=== PATIENT | female | born 1970 | race African-American/Black ===

== ENCOUNTER 2017-04-24 12:45 | Emergency (ER) | payer BC ==
--- NOTE | 2017-04-24 13:12 | ER Document Report ---
ED Medical Screen (RME) - General Chief Complaint: Abdominal Pain Stated Complaint: SIDE PAIN Time Seen by Provider: 04/24/17 13:03 Notes: Day history of intermittent right lower quadrant abdomen pelvic pain. Pain is made worse getting up and down from a chair. Has been feeling hot and cold with some nauseousness. Has a past history of diverticular disease. Has some tenderness to right lower quadrant and suprapubic region on palpation. I have greeted and performed a rapid initial assessment of this patient. A comprehensive ED assessment and evaluation of the patient, analysis of test results and completion of the medical decision making process will be conducted by additional ED providers. TRAVEL OUTSIDE OF THE [place] IN LAST 30 DAYS: No - Related Data Allergies/Adverse Reactions: metronidazole [From Flagyl] Allergy (Severe, Verified 08/14/16 08:55) Hives Past Medical History - Past Medical History Cardiac Medical History: Reports: Hx Hypercholesterolemia, Hx Hypertension - on meds Denies: Hx Coronary Artery Disease, Hx Heart Attack Pulmonary Medical History: Denies: Hx Asthma, Hx Bronchitis, Hx COPD, Hx Pneumonia Neurological Medical History: Denies: Hx Cerebrovascular Accident, Hx Seizures Endocrine Medical History: Reports: Hx Diabetes Mellitus Type 2 Renal/ Medical History: Denies: Hx Peritoneal Dialysis Musculoskeltal Medical History: Denies Hx Arthritis, Reports Hx Musculoskeletal Deformity, Reports Hx Musculoskeletal Trauma Psychiatric Medical History: Denies: Hx Depression Past Surgical History: Reports: Hx Cholecystectomy, Hx Hysterectomy, Hx Orthopedic Surgery - right shoulder X2. Denies: Hx Pacemaker - Immunizations Immunizations up to date: Yes Hx Diphtheria, Pertussis, Tetanus Vaccination: Yes Physical Exam - Vital signs Vitals: Temp Pulse Resp BP Pulse Ox 98.4 F 90 15 148/88 H 97 04/24/17 12:48 04/24/17 12:48 04/24/17 12:48 04/24/17 12:48 04/24/17 12:48 Course - Vital Signs Vital signs: Temp Pulse Resp BP Pulse Ox 98.4 F 90 15 148/88 H 97 04/24/17 12:48 04/24/17 12:48 04/24/17 12:48 04/24/17 12:48 04/24/17 12:48
[2017-04-24 13:54] LABS: ABSOLUTE EOSINOPHILS # (AUTO) 0.1 10^3/uL (0.0-0.6); ABSOLUTE LYMPHOCYTES (AUTO) 3.7 10^3/uL (0.5-4.7); ABSOLUTE MONOCYTES (AUTO) 0.5 10^3/uL (0.1-1.4); ABSOLUTE NEUT (AUTO) 3.5 10^3/uL (1.7-8.2); BASOPHILS % (AUTO) 0.4 % (0-2); EOSINOPHILS % (AUTO) 1.3 % (0-6); HEMATOCRIT 37.8 % (36.0-47.0); HEMOGLOBIN 12.4 g/dL (12.0-15.5); HGB HCT DIFFERENCE -0.6; LYMPHOCYTES % (AUTO) 46.8 % (13-45); MEAN CORPUSCULAR HEMOGLOBIN 28.4 pg (27.0-33.4); MEAN CORPUSCULAR HGB CONC 32.9 g/dL (32.0-36.0); MEAN CORPUSCULAR VOLUME 86 fl (80-97); MONOCYTES % (AUTO) 6.2 % (3-13); RED BLOOD COUNT 4.38 10^6/uL (3.72-5.28); RED CELL DISTRIBUTION WIDTH 13.9 % (11.5-14.0); SEGMENTED NEUTROPHILS % (AUTO) 45.3 % (42-78); WHITE BLOOD COUNT 7.8 10^3/uL (4.0-10.5)
[2017-04-24 14:06] LABS: APPEARANCE,URINE SLIGHTLY-CLOUDY; BILIRUBIN,URINE NEGATIVE (NEGATIVE); GLUCOSE, URINE NEGATIVE (NEGATIVE); KETONES,URINE NEGATIVE (NEGATIVE); LEUKOCYTE ESTERASE,URINE NEGATIVE (NEGATIVE); NITRITE,URINE NEGATIVE (NEGATIVE); PROTEIN,URINE 30 mg/dL (NEGATIVE); UROBILINOGEN,URINE NEGATIVE mg/dL (<2.0)
[2017-04-24 14:12] LABS: ALANINE AMINOTRANSFERASE 42 U/L (9-52); ALBUMIN 4.3 g/dL (3.5-5.0); ALKALINE PHOSPHATASE 164 U/L (38-126); ANION GAP 12 (5-19); ASPARTATE AMINO TRANSFERASE 20 U/L (14-36); BILIRUBIN,DIRECT 0.3 mg/dL (0.0-0.4); BILIRUBIN,TOTAL 0.5 mg/dL (0.2-1.3); BLOOD UREA NITROGEN 13 mg/dL (7-20); CALCIUM 10.1 mg/dL (8.4-10.2); CARBON DIOXIDE 26 mmol/L (22-30); CHLORIDE 103 mmol/L (98-107); CREATININE RESULT 0.62 mg/dL (0.52-1.25); GLUCOSE 111 mg/dL (75-110); POTASSIUM 4.2 mmol/L (3.6-5.0); SODIUM 141.4 mmol/L (137-145)
--- NOTE | 2017-04-24 15:10 | RADIOLOGY REPORT (SQ) ---
EXAM DESCRIPTION: CT ABD/PELVIS WITH IV ONLY COMPLETED DATE/TIME: 04/24/2017 2:39 pm REASON FOR STUDY: RLQ and mid pelvic pain, hx of diverticular diz COMPARISON: None. TECHNIQUE: CT scan of the abdomen and pelvis performed using helical scanning technique with dynamic intravenous contrast injection. No oral contrast. Images reviewed with lung, soft tissue, and bone windows. Reconstructed coronal and sagittal MPR images reviewed. Delayed images for evaluation of the urinary system also acquired. All images stored on PACS. All CT scanners at this facility use dose modulation, iterative reconstruction, and/or weight based d osing when appropriate to reduce radiation dose to as low as reasonably achievable (ALARA). [facility]: Dose Right [facility]: CareDose [facility]: Dose Right [facility]: Teradose 4D [facility]: BrainMass CONTRAST TYPE AND DOSE: contrast/concentration: Isovue 370.00 mg/ml; Total Contrast Delivered: 94.0 ml; Total Saline Delivered: 42.9 ml RENAL FUNCTION: Creatinine 0.62 RADIATION DOSE: Up-to-date CT equipment and radiation dose reduction techniques were employed. CTDIv ol: 9.6 - 13.5 mGy. DLP: 1254 mGy-cm.. LIMITATIONS: None. FINDINGS: LOWER CHEST: No significant findings. No nodules or infiltrates. LIVER: Normal size. No masses. No dilated ducts. There is diffuse fatty infiltration of the liver. SPLEEN: Normal size. No focal lesions. PANCREAS: No masses. No significant calcifications. No adjacent inflammation or peripancreatic fluid collections. Pancreatic duct not dilated. GALLBLADDER: Status post cholecystectomy. ADRENAL GLANDS: No significant masses or asymmetry. RIGHT KIDNEY AND URETER: No solid masses. No significant calcifications. No hydronephrosis or hyd roureter. LEFT KIDNEY AND URETER: No solid masses. No significant calcifications. No hydronephrosis or hydr oureter. AORTA AND VESSELS: No aneurysm. No dissection. Renal arteries, SMA, celiac without stenosis. RETROPERITONEUM: No retroperitoneal adenopathy, hemorrhage or masses. BOWEL AND PERITONEAL CAVITY: No masses or inflammatory changes. No free fluid or peritoneal masses. APPENDIX: Normal. PELVIS: No mass or free fluid. Normal bladder. ABDOMINAL WALL: No masses. No hernias. BONES: No significant or acute findings. OTHER: No other significant finding. IMPRESSION: NO SIGNIFICANT OR ACUTE FINDING IN THE ABDOMEN OR PELVIS ON CT SCAN WITH IV CONTRAST. TECHNICAL DOCUMENTATION: JOB ID: [id number] Quality ID # [id number]: Final reports with documentation of one or more dose reduction techniques (e.g., Au tomated exposure control, adjustment of the mA and/or kV according to patient size, use of iterative reconstruction technique) 2010 [employer]- All Rights Reserved
[2017-04-24] MEDS ORDERED: MORPHINE SULFATE 10 MG/ML INJ IV ONE (16:05)
[2017-04-24] MEDS ORDERED: ONDANSETRON HCL INJ/PF 4 MG/2 ML SDV IV ONE (16:05)
--- NOTE | 2017-04-24 16:26 | ER Document Report ---
ED GI/ - General Chief Complaint: Abdominal Pain Stated Complaint: SIDE PAIN Time Seen by Provider: 04/24/17 13:03 Mode of Arrival: Ambulatory Information source: Patient TRAVEL OUTSIDE OF THE [place] IN LAST 30 DAYS: No - HPI Patient complains to provider of: Abdominal pain Onset: Other - 4 DAYS Timing/Duration: Gradual Quality of pain: Cramping, Sharp Severity at maximum: Moderate Severity in ED: Mild Context: denies: Bad food, Lifting, Out of the country travel, , Recent trauma Location: RLQ - JUST ABOVE INGUINAL LIGAMENT Vaginal bleeding (Compared to normal period): None Menstrual period history: S/P menopausal - Related Data Allergies/Adverse Reactions: metronidazole [From Flagyl] Allergy (Severe, Verified 08/14/16 08:55) Hives Past Medical History - General Information source: Patient - Social History Smoking Status: Unknown if Ever Smoked Cigarette use (# per day): No Chew tobacco use (# tins/day): No Frequency of alcohol use: None Drug Abuse: None Lives with: Family Family History: Reviewed & Not Pertinent, DM Patient has suicidal ideation: No Patient has homicidal ideation: No - Past Medical History Cardiac Medical History: Reports: Hx Hypercholesterolemia, Hx Hypertension - on meds Denies: Hx Coronary Artery Disease, Hx Heart Attack Pulmonary Medical History: Denies: Hx Asthma, Hx Bronchitis, Hx COPD, Hx Pneumonia Neurological Medical History: Denies: Hx Cerebrovascular Accident, Hx Seizures Endocrine Medical History: Reports: Hx Diabetes Mellitus Type 2 Renal/ Medical History: Denies: Hx Peritoneal Dialysis Malignancy Medical History: Reports: None GI Medical History: Reports: None Musculoskeltal Medical History: Denies Hx Arthritis, Reports Hx Musculoskeletal Deformity, Reports Hx Musculoskeletal Trauma Psychiatric Medical History: Denies: Hx Depression Past Surgical History: Reports: Hx Cholecystectomy, Hx Hysterectomy, Hx Orthopedic Surgery - right shoulder X2. Denies: Hx Pacemaker - Immunizations Immunizations up to date: Yes Hx Diphtheria, Pertussis, Tetanus Vaccination: Yes Review of Systems - Review of Systems Constitutional: No symptoms reported. denies: Chills, Fever EENT: No symptoms reported Cardiovascular: No symptoms reported Respiratory: No symptoms reported Gastrointestinal: See HPI, Abdominal pain, Nausea, Poor appetite. denies: Diarrhea, Vomiting, Constipation, Black stools, Rectal bleeding Genitourinary: No symptoms reported Female Genitourinary: Post menopausal Musculoskeletal: No symptoms reported Skin: No symptoms reported Neurological/Psychological: No symptoms reported Physical Exam - Vital signs Vitals: Temp Pulse Resp BP Pulse Ox 98.4 F 90 15 148/88 H 97 04/24/17 12:48 04/24/17 12:48 04/24/17 12:48 04/24/17 12:48 04/24/17 12:48 Interpretation: Hypertensive. No: Tachycardic, Tachypneic, Febrile - General General appearance: Appears well, Alert In distress: None - HEENT Head: Normocephalic Eyes: Normal Conjunctiva: Normal Ears: Normal Nasal: Normal Mouth/Lips: Normal Mucous membranes: Normal Pharynx: Normal Neck: Normal - Respiratory Respiratory status: No respiratory distress Breath sounds: Normal - Cardiovascular Rhythm: Regular Heart sounds: Normal auscultation Murmur: No - Abdominal Inspection: Normal Bowel sounds: Normal Tenderness: Tender - MILD, RLQ - Back Back: Normal. No: Tender, CVA tenderness - Extremities General upper extremity: Normal inspection General lower extremity: Normal inspection - Neurological Neuro grossly intact: Yes Cognition: Normal Orientation: AAOx4 - Psychological Associated symptoms: Normal affect, Normal mood - Skin Skin Temperature: Warm Skin Moisture: Dry Skin Color: Normal Skin Turgor: Elastic Course - Vital Signs Vital signs: Temp Pulse Resp BP Pulse Ox 97.8 F 72 16 113/65 95 04/24/17 18:47 04/24/17 18:47 04/24/17 18:47 04/24/17 18:47 04/24/17 18:47 - Laboratory Result Diagrams: 04/24/17 13:30 04/24/17 13:30 Laboratory results interpreted by me: 04/24/17 04/24/17 04/24/17 13:30 13:30 13:30 Lymphocytes % 46.8 H Glucose 111 H Alkaline Phosphatase 164 H Urine Protein 30 H - Consults DR. GARY Time consulted: 20:50 Consulted provider: follow-up in office Discharge - Discharge Clinical Impression: Abdominal pain Qualifiers: Abdominal location: right lower quadrant Qualified Code(s): R10.31 - Right lower quadrant pain Condition: Stable Disposition: HOME, SELF-CARE Instructions: Abdominal Pain ([facility]), Intravenous (IV) Fluids ([facility]), Oral Narcotic Medication ([facility]) Additional Instructions: REST, DRINK PLENTY OF FLUIDS. CONTINUE YOUR USUAL MEDS PRESCRIBED BY DR. GARY. FOLLOW UP WITH DR. GARY TOMORROW, CALL OFFICE AFTER 8 A.M. FOR TIME. RETURN TO E.R. IF ANY WORSENING, ANY TIME. Referrals: GARY GARY MD [Primary Care Provider] - Follow up tomorrow
--- NOTE | 2017-04-24 18:41 | RADIOLOGY REPORT (SQ) ---
EXAM DESCRIPTION: U/S NON OB PEL TV W/DOPPLER COMPLETED DATE/TIME: 04/24/2017 6:25 pm REASON FOR STUDY: RLQ ABD PELVIC PAIN, NORMAL CT COMPARISON: Abdominopelvic CT scan dated 04/24/2017 TECHNIQUE: Dynamic and static grayscale images acquired of the pelvis via transvaginal approach and recorded on PACS. Additional selected color Doppler and spectral images recorded. LIMITATIONS: Study is limited due to overlying bowel gas. FINDINGS: UTERUS: Status post hysterectomy. RIGHT OVARY: Right ovary was not visualized. LEFT OVARY: Left ovary was not visualized. FREE FLUID: None noted. OTHER: No other significant finding. IMPRESSION: Limited study as noted above. No significant pelvic abnormalities were identified. TECHNICAL DOCUMENTATION: JOB ID: [id number] [employer].- All Rights Reserved
[2017-04-24] MEDS ORDERED: HYDROCODONE/ACETAMINOPHEN 5-325 MG 6 TAB/DSPK PO PRN (19:25)
[2017-04-24] MEDS ORDERED: NORMAL SALINE 1000 ML 1,000 ML IV ONE (19:25)
[2017-04-24 22:26] VITALS: BP 113/68
== END 2017-04-24 22:24 | disposition home or self-care (01) ==
LOC: ER 12:45
DX: R10.31 Right lower quadrant pain (principal); R11.0 Nausea; E78.00 Pure hypercholesterolemia, unspecified; I10 Essential (primary) hypertension; E11.9 Type 2 diabetes mellitus without complications; Z90.49 Acquired absence of other specified parts of digestive tract; Z90.710 Acquired absence of both cervix and uterus
CPT/HCPCS: 99284; 96361; 96374; 96375; 36415; 82962; 83690; 85025; 80053; 81001; 76830; 93976; 74177; J2270; J2405; J7030

== ENCOUNTER 2017-07-29 20:39 | Emergency (ER) | payer BC ==
[2017-07-29 21:45] LABS: ABSOLUTE BASOPHILS # (AUTO) 0.1 10^3/uL (0.0-0.2); ABSOLUTE EOSINOPHILS # (AUTO) 0.1 10^3/uL (0.0-0.6); ABSOLUTE LYMPHOCYTES (AUTO) 4.3 10^3/uL (0.5-4.7); ABSOLUTE MONOCYTES (AUTO) 0.4 10^3/uL (0.1-1.4); ABSOLUTE NEUT (AUTO) 3.7 10^3/uL (1.7-8.2); BASOPHILS % (AUTO) 0.9 % (0-2); EOSINOPHILS % (AUTO) 1.5 % (0-6); HEMATOCRIT 36.2 % (36.0-47.0); HEMOGLOBIN 12.7 g/dL (12.0-15.5); HGB HCT DIFFERENCE 1.9; LYMPHOCYTES % (AUTO) 49.6 % (13-45); MEAN CORPUSCULAR HEMOGLOBIN 30.5 pg (27.0-33.4); MEAN CORPUSCULAR HGB CONC 35.1 g/dL (32.0-36.0); MEAN CORPUSCULAR VOLUME 87 fl (80-97); MONOCYTES % (AUTO) 4.8 % (3-13); RED BLOOD COUNT 4.16 10^6/uL (3.72-5.28); RED CELL DISTRIBUTION WIDTH 13.5 % (11.5-14.0); SEGMENTED NEUTROPHILS % (AUTO) 43.2 % (42-78); WHITE BLOOD COUNT 8.6 10^3/uL (4.0-10.5)
[2017-07-29 21:47] LABS: APPEARANCE,URINE SLIGHTLY-CLOUDY; BILIRUBIN,URINE NEGATIVE (NEGATIVE); GLUCOSE, URINE >=500 mg/dL (NEGATIVE); KETONES,URINE NEGATIVE (NEGATIVE); LEUKOCYTE ESTERASE,URINE TRACE (NEGATIVE); NITRITE,URINE NEGATIVE (NEGATIVE); PROTEIN,URINE NEGATIVE (NEGATIVE); URINE SPECIFIC GRAVITY 1.028
--- NOTE | 2017-07-29 22:03 | ER Document Report ---
ED Medical Screen (RME) - General Chief Complaint: Vaginal Bleeding Stated Complaint: BLEEDING Time Seen by Provider: 07/29/17 22:01 Mode of Arrival: Ambulatory Information source: Patient Notes: 47-year-old female presents to ED for complaint of vaginal bleeding today. She states she has had a partial hysterectomy. She states she had a little bit of blood in her panty liner the first time and the second time she had a small amount on the tissue after she urinated. Past medical history is shoulder surgery 2 on the right gallbladder removal endoscopy colonoscopy. She states she smokes 5-6 cigarettes a day alcohol a glass of wine weekly no drugs. 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 I have greeted and performed a rapid initial assessment of this patient. A comprehensive ED assessment and evaluation of the patient, analysis of test results and completion of medical decision making process will be conducted by an additional ED providers. TRAVEL OUTSIDE OF THE [place] IN LAST 30 DAYS: No - Related Data Allergies/Adverse Reactions: metronidazole [From Flagyl] Allergy (Severe, Verified 07/29/17 21:12) Hives Past Medical History - Past Medical History Cardiac Medical History: Reports: Hx Hypercholesterolemia, Hx Hypertension - on meds Denies: Hx Coronary Artery Disease, Hx Heart Attack Pulmonary Medical History: Denies: Hx Asthma, Hx Bronchitis, Hx COPD, Hx Pneumonia Neurological Medical History: Denies: Hx Cerebrovascular Accident, Hx Seizures Endocrine Medical History: Reports: Hx Diabetes Mellitus Type 2 Renal/ Medical History: Denies: Hx Peritoneal Dialysis Musculoskeltal Medical History: Denies Hx Arthritis, Reports Hx Musculoskeletal Deformity, Reports Hx Musculoskeletal Trauma Psychiatric Medical History: Denies: Hx Depression Past Surgical History: Reports: Hx Cholecystectomy, Hx Hysterectomy, Hx Orthopedic Surgery - right shoulder X2. Denies: Hx Pacemaker - Immunizations Immunizations up to date: Yes Hx Diphtheria, Pertussis, Tetanus Vaccination: Yes Physical Exam - Vital signs Vitals: Temp Pulse Resp BP Pulse Ox 97.7 F 96 14 130/79 H 97 07/29/17 21:14 07/29/17 21:14 07/29/17 21:14 07/29/17 21:14 07/29/17 21:14 Course - Vital Signs Vital signs: Temp Pulse Resp BP Pulse Ox 97.7 F 96 14 130/79 H 97 07/29/17 21:14 07/29/17 21:14 07/29/17 21:14 07/29/17 21:14 07/29/17 21:14 - Laboratory Result Diagrams: 07/29/17 21:35 Laboratory results interpreted by me: 07/29/17 07/29/17 21:24 21:35 Lymphocytes % 49.6 H Urine Glucose (UA) >=500 H Urine Urobilinogen 4.0 H Ur Leukocyte Esterase TRACE H
--- NOTE | 2017-07-30 06:24 | ER Document Report ---
ED General - General Chief Complaint: Vaginal Bleeding Stated Complaint: BLEEDING Time Seen by Provider: 07/29/17 22:01 Mode of Arrival: Ambulatory Information source: Patient Notes: 47 yr old female presents with hx of partial hysterectomy with vaginal spotting and pelvic pressure. Pt denies nay fevers or chills. [facility] performed [facility] TRAVEL OUTSIDE OF THE [place] IN LAST 30 DAYS: No - HPI Onset: Yesterday Onset/Duration: Sudden Quality of pain: Pressure Severity: Mild Pain Level: 1 Associated symptoms: Other Exacerbated by: Denies Relieved by: Denies Similar symptoms previously: No Recently seen / treated by doctor: No - Related Data Allergies/Adverse Reactions: metronidazole [From Flagyl] Allergy (Severe, Verified 07/29/17 21:12) Hives Past Medical History - General Information source: Patient - Social History Smoking Status: Never Smoker Cigarette use (# per day): No Chew tobacco use (# tins/day): No Smoking Education Provided: No Family History: Reviewed & Not Pertinent, DM Patient has suicidal ideation: No Patient has homicidal ideation: No - Past Medical History Cardiac Medical History: Reports: Hx Hypercholesterolemia, Hx Hypertension - on meds Denies: Hx Coronary Artery Disease, Hx Heart Attack Pulmonary Medical History: Denies: Hx Asthma, Hx Bronchitis, Hx COPD, Hx Pneumonia Neurological Medical History: Denies: Hx Cerebrovascular Accident, Hx Seizures Endocrine Medical History: Reports: Hx Diabetes Mellitus Type 2 Renal/ Medical History: Denies: Hx Peritoneal Dialysis Musculoskeltal Medical History: Denies Hx Arthritis, Reports Hx Musculoskeletal Deformity, Reports Hx Musculoskeletal Trauma Psychiatric Medical History: Denies: Hx Depression Past Surgical History: Reports: Hx Cholecystectomy, Hx Hysterectomy, Hx Orthopedic Surgery - right shoulder X2. Denies: Hx Pacemaker - Immunizations Immunizations up to date: Yes Hx Diphtheria, Pertussis, Tetanus Vaccination: Yes Review of Systems - Review of Systems Notes: REVIEW OF SYSTEMS: CONSTITUTIONAL : Denies fever, chills, or sweats. Denies recent illness. EENT: Denies eye, ear, throat, or mouth pain or symptoms. Denies nasal or sinus congestion or discharge. Denies throat, tongue, or mouth swelling or difficulty swallowing. CARDIOVASCULAR: Denies chest pain. Denies palpitations or racing or irregular heart beat. Denies ankle edema. RESPIRATORY: Denies cough, cold, or chest congestion. Denies shortness of breath, difficulty breathing, or wheezing. GASTROINTESTINAL: Denies abdominal pain or distention. Denies nausea, vomiting , or diarrhea. Denies blood in vomitus, stools, or per rectum. Denies black, tarry stools. Denies constipation. GENITOURINARY: Denies difficulty urinating, painful urination, burning, frequency, blood in urine, or discharge. FEMALE GENITOURINARY: Admits to vaginal pain pressure MUSCULOSKELETAL: Denies back or neck pain or stiffness. Denies joint pain or swelling. SKIN: Denies rash, lesions or sores. HEMATOLOGIC : Denies easy bruising or bleeding. LYMPHATIC: Denies swollen, enlarged glands. NEUROLOGICAL: Denies confusion or altered mental status. Denies passing out or loss of consciousness. Denies dizziness or lightheadedness. Denies headache. Denies weakness or paralysis or loss of use of either side. Denies problems with gait or speech. Denies sensory loss, numbness, or tingling. Denies seizures. PSYCHIATRIC: Denies anxiety or stress. Denies depression, suicidal ideation, or homicidal ideation. ALL OTHER SYSTEMS REVIEWED AND NEGATIVE. PHYSICAL EXAMINATION: GENERAL: Well-appearing, well-nourished and in no acute distress. HEAD: Atraumatic, normocephalic. EYES: Pupils equal round and reactive to light, extraocular movements intact, conjunctiva are normal. ENT: Nares patent, oropharynx clear without exudates. Moist mucous membranes. NECK: Normal range of motion, supple without lymphadenopathy LUNGS: Breath sounds clear to auscultation bilaterally and equal. No wheezes rales or rhonchi. HEART: Regular rate and rhythm without murmurs ABDOMEN: Soft, nontender, nondistended abdomen. No guarding, no rebound. No masses appreciated. Female : deferred Musculoskeletal: Normal range of motion, no pitting or edema. No cyanosis. NEUROLOGICAL: Cranial nerves grossly intact. Normal speech, normal gait. Normal sensory, motor exams PSYCH: Normal mood, normal affect. SKIN: Warm, Dry, normal turgor, no rashes or lesions noted. Dictation was performed using [employer] recognition software Physical Exam - Vital signs Vitals: Temp Pulse Resp BP Pulse Ox 97.7 F 96 14 130/79 H 97 07/29/17 21:14 07/29/17 21:14 07/29/17 21:14 07/29/17 21:14 07/29/17 21:14 Course - Re-evaluation Re-evalutation: 07/30/17 06:24 pt seen, u/s ordered 07/30/17 08:50 u/s noted no mass, labs were normal, I did speak with the patient regarding the need for OBGYN evaluation. she agrees , will dc home with pain control After performing a Medical Screening Examination, I estimate there is LOW risk for ACUTE APPENDICITIS, BOWEL OBSTRUCTION, ACUTE CHOLECYSTITIS, PERFORATED DIVERTICULITIS, INCARCERATED HERNIA, PANCREATITIS, PELVIC INFLAMMATORY DISEASE, PERFORATED ULCER, ECTOPIC , or TUBO-OVARIAN ABSCESS, thus I consider the discharge disposition reasonable. Also, there is no evidence or peritonitis , sepsis, or toxicity. I have reevaluated this patient multiple times and no significant life threatening changes are noted. The patient and I have discussed the diagnosis and risks, and we agree with discharging home with close follow-up with the understanding that symptoms and presentations can change. We also discussed returning to the Emergency Department immediately if new or worsening symptoms occur. We have discussed the symptoms which are most concerning (e.g., bloody stool, fever, changing or worsening pain, vomiting) that necessitate immediate return. - Vital Signs Vital signs: Temp Pulse Resp BP Pulse Ox 97.7 F 76 18 96/80 L 96 07/29/17 21:14 07/30/17 06:05 07/30/17 06:05 07/30/17 06:05 07/30/17 06:05 - Laboratory Result Diagrams: 07/29/17 21:35 Laboratory results interpreted by me: 07/29/17 07/29/17 21:24 21:35 Lymphocytes % 49.6 H Urine Glucose (UA) >=500 H Urine Urobilinogen 4.0 H Ur Leukocyte Esterase TRACE H - Diagnostic Test Radiology reviewed: Image reviewed, Reports reviewed - no acute abnormality Discharge - Discharge Clinical Impression: Pelvic pain, Vagina bleeding Condition: Stable Disposition: HOME, SELF-CARE Instructions: Vaginal Bleeding ([facility]) Additional Instructions: Please return immediately if there are any other concerns Prescriptions: Oxycodone HCl/Acetaminophen [Percocet 5-325 mg Tablet] 1 - 2 tab PO Q4H PRN #15 tablet PRN Reason: Referrals: GARY GARY MD [Primary Care Provider] - Follow up as needed [facility] [Provider Group] - Follow up tomorrow
--- NOTE | 2017-07-30 08:00 | RADIOLOGY REPORT (SQ) ---
EXAM DESCRIPTION: U/S NON OB PEL TV W/DOPPLER COMPLETED DATE/TIME: 07/30/2017 7:45 am REASON FOR STUDY: vag bleed, hx parital hysterectomy COMPARISON: 04/24/2017. TECHNIQUE: Dynamic and static grayscale images acquired of the pelvis via transvaginal approach and recorded on PACS. Additional selected color Doppler and spectral images recorded. LIMITATIONS: None. FINDINGS: UTERUS: Absent. ENDOMETRIAL STRIPE: Not applicable. CERVIX: Not applicable. RIGHT OVARY: No abnormal masses. RIGHT OVARY DOPPLER: Normal arterial vascular flow without evidence for torsion. LEFT OVARY: No abnormal masses. LEFT OVARY DOPPLER: Normal arterial vascular flow without evidence for torsion. FREE FLUID: None noted. OTHER: Heterogeneity with nonspecific echogenic foci of the vaginal cuff. MEASUREMENTS: UTERUS: Absent. ENDOMETRIAL STRIPE: Not applicable. RIGHT OVARY: 3.1 cm. LEFT OVARY: 2.5 cm. IMPRESSION: No acute findings. Uterus is surgically absent. Normal ovaries. TECHNICAL DOCUMENTATION: JOB ID: [id number] [employer]- All Rights Reserved
[2017-07-30 09:00] VITALS: BP 120/79
== END 2017-07-30 09:11 | disposition home or self-care (01) ==
LOC: ER 20:39
DX: N93.9 Abnormal uterine and vaginal bleeding, unspecified (principal); R10.2 Pelvic and perineal pain; I10 Essential (primary) hypertension; Z90.711 Acquired absence of uterus with remaining cervical stump; Z90.49 Acquired absence of other specified parts of digestive tract; Z88.1 Allergy status to other antibiotic agents; E11.9 Type 2 diabetes mellitus without complications
CPT/HCPCS: 36415; 76830; 81001; 85025; 93976; 99284

== ENCOUNTER 2017-08-31 04:29 | Emergency (ER) | payer BC ==
[2017-08-31] MEDS ORDERED: LIDOCAINE 2% INJ-PF (20 MG/ML) 10 ML AMPUL NEB ONE (04:53)
--- NOTE | 2017-08-31 04:56 | ER Document Report ---
Doctor's Note Notes: 08/31/17 04:53 I performed a quick triage evaluation the patient. Patient is a 39-year-old female who presents with gradual worsening of a sensation that something is stuck in her throat. She says that she has a history of a small abrasion on her esophagus while back which is caused by popcorn kernel. Few weeks ago started feeling as if she is having that sensation again so she went back to Dr. Montelongo. He said they would arrange for endoscopy. She is scheduled for endoscopy on Saturday. She said her symptoms have continued to worsen and tonight she feels as if she opens her mouth that she will vomit and she also feels as if something is affecting her breathing. She denies of any previous injuries or trauma to her airway. The previous surgery she had in the past was to the esophagus. No spinning up of blood. No coughing up of blood. No actual vomiting yet. No fevers. No other complaints at this time. On exam patient has no stridor. She will not fully open her mouth as she says it makes her feel like she has to vomit if she does so. Her lung hong are clear. She is not in any distress. She seems very anxious. I will order lab work. I will order some x-rays. I will give her lidocaine nebulizer to see if this will help numb her throat so she will be willing to open her mouth so that the oncoming physician will be able to look at her throat. We will give her a small dose Ativan as she seems very anxious. 08/31/17 04:55
[2017-08-31] MEDS ORDERED: LORAZEPAM INJ 2 MG/1 ML VIAL IV ONE (05:31)
[2017-08-31 05:43] LABS: PROTHROMBIN TIME 11.8 SEC (11.4-15.4)
[2017-08-31 05:44] LABS: PARTIAL THROMBOPLASTIN TIME 31.6 SEC (23.5-35.8)
[2017-08-31 05:56] LABS: ANION GAP 16 (5-19); BLOOD UREA NITROGEN 14 mg/dL (7-20); CALCIUM 10.4 mg/dL (8.4-10.2); CARBON DIOXIDE 21 mmol/L (22-30); CHLORIDE 105 mmol/L (98-107); CREATININE RESULT 0.66 mg/dL (0.52-1.25); GLUCOSE 262 mg/dL (75-110); POTASSIUM 4.5 mmol/L (3.6-5.0); SODIUM 141.9 mmol/L (137-145)
[2017-08-31] MEDS ORDERED: ONDANSETRON HCL INJ/PF 4 MG/2 ML SDV ONE (05:59)
--- NOTE | 2017-08-31 06:03 | RADIOLOGY REPORT (SQ) ---
EXAM DESCRIPTION: SOFT TISSUE NECK COMPLETED DATE/TIME: 08/31/2017 5:53 am REASON FOR STUDY: dyspnea COMPARISON: None. NUMBER OF VIEWS: Two views. TECHNIQUE: AP and lateral radiographic image of the soft tissues of the neck. LIMITATIONS: None. FINDINGS: EPIGLOTTIS: Normal. Contour normal. Aryepiglottic folds normal. PREVERTEBRAL SOFT TISSUES: Normal. No soft tissue swelling. SUBGLOTTIC AREA: Normal. No abnormal narrowing. RETROPHARYNGEAL SPACE: Normal. No soft tissue masses. BONES: No significant findings. Moderate anterior marginal and partially bridging osteophytes throug hout the cervical spine. LUNG APICES: Normal. OTHER: No radiopaque foreign body. No other significant finding. IMPRESSION: NEGATIVE STUDY OF THE SOFT TISSUES OF THE NECK. TECHNICAL DOCUMENTATION: JOB ID: [id number] [employer]- All Rights Reserved
--- NOTE | 2017-08-31 06:03 | RADIOLOGY REPORT (SQ) ---
EXAM DESCRIPTION: CHEST SINGLE VIEW COMPLETED DATE/TIME: 08/31/2017 5:53 am REASON FOR STUDY: dyspnea COMPARISON: 01/26/2016. EXAM PARAMETERS: NUMBER OF VIEWS: One view. TECHNIQUE: Single frontal radiographic view of the chest acquired. RADIATION DOSE: NA LIMITATIONS: None. FINDINGS: LUNGS AND PLEURA: No opacities, masses or pneumothorax. No pleural effusion. Moderate briana g volume. Stable. MEDIASTINUM AND HILAR STRUCTURES: No masses. Contour normal. HEART AND VASCULAR STRUCTURES: Heart normal in size. Normal vasculature. BONES: No acute findings. HARDWARE: Right upper abdominal clips. OTHER: No other significant finding. IMPRESSION: NO ACUTE RADIOGRAPHIC FINDING IN THE CHEST. TECHNICAL DOCUMENTATION: JOB ID: [id number] [employer]- All Rights Reserved
[2017-08-31] MEDS ORDERED: ONDANSETRON HCL INJ/PF 4 MG/2 ML SDV IV ONE (06:08)
[2017-08-31 06:18] LABS: ABSOLUTE BASOPHILS # (AUTO) 0.1 10^3/uL (0.0-0.2); ABSOLUTE EOSINOPHILS # (AUTO) 0.1 10^3/uL (0.0-0.6); ABSOLUTE LYMPHOCYTES (AUTO) 5.1 10^3/uL (0.5-4.7); ABSOLUTE MONOCYTES (AUTO) 0.7 10^3/uL (0.1-1.4); ABSOLUTE NEUT (AUTO) 4.2 10^3/uL (1.7-8.2); BASOPHILS % (AUTO) 0.7 % (0-2); EOSINOPHILS % (AUTO) 0.9 % (0-6); HEMATOCRIT 36.7 % (36.0-47.0); HEMOGLOBIN 12.8 g/dL (12.0-15.5); HGB HCT DIFFERENCE 1.7; LYMPHOCYTES % (AUTO) 50.3 % (13-45); MEAN CORPUSCULAR HEMOGLOBIN 29.7 pg (27.0-33.4); MEAN CORPUSCULAR HGB CONC 34.8 g/dL (32.0-36.0); MEAN CORPUSCULAR VOLUME 85 fl (80-97); MONOCYTES % (AUTO) 7.2 % (3-13); RED CELL DISTRIBUTION WIDTH 13.5 % (11.5-14.0); SEGMENTED NEUTROPHILS % (AUTO) 40.9 % (42-78); WHITE BLOOD COUNT 10.2 10^3/uL (4.0-10.5)
--- NOTE | 2017-08-31 06:46 | ER Document Report ---
ED ENT - General Mode of Arrival: Ambulatory Information source: Patient TRAVEL OUTSIDE OF THE [place] IN LAST 30 DAYS: No <ALLYSON MIRAMONTES - Last Filed: 08/31/17 06:56> <YVETTE KINCAID - Last Filed: 08/31/17 07:15> - General Chief Complaint: Difficulty Swallowing Stated Complaint: CHEST PAIN Time Seen by Provider: 08/31/17 04:53 Notes: Patient is a 47 year old female that presents to the emergency department today with complaints of a foreign body sensation in her throat for the last year exacerbated over the last three weeks. Patient states two years ago she developed an abrasion on her esophagus from a popcorn kernel. Patient has an endoscopy scheduled in two days. Patient was given nebulized lidocaine which she states made her sensation worse. Patient states she feels like she has difficulty breathing and swallowing despite saturating 97-98 on room air. (ALLYSON MIRAMONTES) - Related Data Allergies/Adverse Reactions: metronidazole [From Flagyl] Allergy (Severe, Verified 07/29/17 21:12) Hives Past Medical History - General Information source: Patient - Social History Smoking Status: Never Smoker Cigarette use (# per day): No Frequency of alcohol use: None Drug Abuse: None Lives with: Family Family History: Reviewed & Not Pertinent, DM Patient has suicidal ideation: No Patient has homicidal ideation: No - Past Medical History Cardiac Medical History: Reports: Hx Hypercholesterolemia, Hx Hypertension - on meds Neurological Medical History: Denies: Hx Cerebrovascular Accident, Hx Seizures Endocrine Medical History: Reports: Hx Diabetes Mellitus Type 2 Renal/ Medical History: Denies: Hx Peritoneal Dialysis Musculoskeltal Medical History: Denies Hx Arthritis, Reports Hx Musculoskeletal Deformity, Reports Hx Musculoskeletal Trauma Psychiatric Medical History: Denies: Hx Depression Past Surgical History: Reports: Hx Cholecystectomy, Hx Hysterectomy, Hx Orthopedic Surgery - right shoulder X2. Denies: Hx Pacemaker - Immunizations Immunizations up to date: Yes Hx Diphtheria, Pertussis, Tetanus Vaccination: Yes <ALLYSON MIRAMONTES - Last Filed: 08/31/17 06:56> Review of Systems - Review of Systems Constitutional: No symptoms reported EENT: See HPI, Other - foreign body sensation Cardiovascular: No symptoms reported Respiratory: No symptoms reported Gastrointestinal: No symptoms reported Genitourinary: No symptoms reported Female Genitourinary: No symptoms reported Musculoskeletal: No symptoms reported Skin: No symptoms reported Hematologic/Lymphatic: No symptoms reported Neurological/Psychological: No symptoms reported -: Yes All other systems reviewed and negative <ALLYSON MIRAMONTES - Last Filed: 08/31/17 06:56> Physical Exam <FEALLYSON - Last Filed: 08/31/17 06:56> <YVETTE KINCAID - Last Filed: 08/31/17 07:15> - Vital signs Vitals: Temp Pulse Resp BP Pulse Ox 97.9 F 87 24 H 149/88 H 100 08/31/17 04:31 08/31/17 04:31 08/31/17 04:31 08/31/17 04:31 08/31/17 04:31 - Notes Notes: Physical Exam: General: Alert, appears well. Multiple family members in room. HEENT: Normocephalic. Atraumatic. PERRLA. Extraocular movements intact. Patient refuses to open mouth for exam. Neck: Supple. Patient pushes hand away when attempting to listen to airflow. Respiratory: No respiratory distress. Abdominal: Normal Inspection. No distension. Extremities: Moves all four extremities. Neurological: Normal cognition. AAOx4. Normal speech. Psychological: Uncooperative Skin: Warm. Dry. Normal color. (ALLYSON MIRAMONTES) Course - Laboratory Result Diagrams: 08/31/17 06:05 08/31/17 04:43 <FEALLYSON - Last Filed: 08/31/17 06:56> - Laboratory Result Diagrams: 08/31/17 06:05 08/31/17 04:43 - Diagnostic Test Radiology reviewed: Image reviewed, Reports reviewed - Chest x-ray and soft tissue neck films are unremarkable. - EKG Interpretation by Ia EKG shows normal: Sinus rhythm, [place], Intervals, QRS Complexes, ST-T Waves Rate: Normal - 82 Rhythm: NSR <YVETTE KINCAID - Last Filed: 08/31/17 07:15> - Re-evaluation Re-evalutation: 08/31/17 07:12 The patient was given lidocaine to inhale and Ativan by Dr. Cuadra initially. This was in hopes of facilitating an oral pharyngeal exam. Patient reports that the inhaled lidocaine made her symptoms worse. She was unwilling to open her mouth to allow an oral pharyngeal exam. She was not tachypneic, she was not dyspneic, she was not tachycardic. Her pulse ox was in the 96-98% room air range. Her voice did not sound altered. I asked the patient if there was anything that she could think of that she felt may help the swallowing difficulty, breathing difficulty or esophageal foreign body sensation--she stated she did not know of anything and had no request. I advised her that if she does have a persistent lesion from the popcorn husk laceration from 2 years ago, it would most likely best be seen on direct visualization by endoscopy as scheduled. She was encouraged to stay on clear liquids or pure soft diet. She was encouraged to take her blood pressure medication when she returns home. She stated she did not need a note for work as she was off for the next few days. (YVETTE KINCAID) - Vital Signs Vital signs: Temp Pulse Resp BP Pulse Ox 97.9 F 87 24 H 149/88 H 100 08/31/17 04:31 08/31/17 04:31 08/31/17 04:31 08/31/17 04:31 08/31/17 04:31 - Laboratory Laboratory results interpreted by me: 08/31/17 08/31/17 04:43 06:05 Seg Neutrophils % 40.9 L Lymphocytes % 50.3 H Absolute Lymphocytes 5.1 H Carbon Dioxide 21 L Glucose 262 H Calcium 10.4 H Discharge <ALLYSON MIRAMONTES - Last Filed: 08/31/17 06:56> <YVETTE KINCAID - Last Filed: 08/31/17 07:15> - Discharge Clinical Impression: Sensation of foreign body in esophagus Condition: Stable Disposition: HOME, SELF-CARE Additional Instructions: You appear to have a worsening of your chronic esophageal foreign body sensation. The etiology of this would probably best be discovered and treated by the endoscopy you have scheduled for Saturday. Between now and then, drink cool clear liquids and avoid eating anything that might be hard or rough that would further irritate your esophagus. RETURN TO THE EMERGENCY ROOM IF ANY NEW OR WORSENING SYMPTOMS. Scribe Attestation: 08/31/17 06:53 I personally performed the services described in the documentation, reviewed and edited the documentation which was dictated to the scribe in my presence, and it accurately records my words and actions. (YVETTE KINCAID) Scribe Documentation - Scribe Written by Scribe:: Dulce Maria Maurice, 08/31/2017 [id number] acting as scribe for :: Jacquelyn <ALLYSON MIRAMONTES - Last Filed: 08/31/17 06:56>
[2017-08-31 07:17] VITALS: BP 123/85
--- NOTE | 2017-08-31 08:45 | EKG REPORT ---
SEVERITY:- NORMAL ECG - SINUS RHYTHM : Confirmed by: Edison Us MD 31-Aug-2017 08:45:38
== END 2017-08-31 07:20 | disposition home or self-care (01) ==
LOC: ER 04:29
DX: R09.89 Other specified symptoms and signs involving the circulatory and respiratory systems (principal); R13.10 Dysphagia, unspecified; R06.00 Dyspnea, unspecified; I10 Essential (primary) hypertension; E11.9 Type 2 diabetes mellitus without complications; Z87.828 Personal history of other (healed) physical injury and trauma; Z88.1 Allergy status to other antibiotic agents; Z79.899 Other long term (current) drug therapy
CPT/HCPCS: 93005; 99285; 96374; 96375; 36415; 85025; 85610; 85730; 80048; 71010; 70360; 93010; J2060; J2405; J3490

== ENCOUNTER → 2017-09-09 | Outpatient (CLI) | payer BC ==
--- NOTE | 2017-09-09 14:55 | RADIOLOGY REPORT (SQ) ---
EXAM DESCRIPTION: U/S THYROID/SFT TISS HD NECK COMPLETED DATE/TIME: 09/09/2017 11:23 am REASON FOR STUDY: PAIN IN THROAT R07.0 PAIN IN THROAT COMPARISON: None. TECHNIQUE: Dynamic and static yanez-scale images acquired of the thyroid gland. Selected additional c olor/power Doppler images recorded. All images stored to PACS. LIMITATIONS: None. FINDINGS: RIGHT LOBE: Normal size. Homogeneous echotexture. 5 mm solid nodule. LEFT LOBE: Normal size. Homogeneous echotexture. No cystic or solid masses. ISTHMUS: Normal size. Homogeneous echotexture. No cystic or solid masses. OTHER: No other significant finding. IMPRESSION: Small solid nodule right lobe. TECHNICAL DOCUMENTATION: JOB ID: [id number] [employer]- All Rights Reserved
== END ==
LOC: RAD 10:49
PROVIDERS: ATTEND Internal Medicine
DX: R07.0 Pain in throat (principal)
CPT/HCPCS: 76536

== ENCOUNTER → 2018-09-15 | Outpatient (CLI) | payer BC ==
--- NOTE | 2018-09-15 14:34 | RADIOLOGY REPORT (SQ) ---
EXAM DESCRIPTION: SHOULDER LEFT 2 OR MORE VIEWS COMPLETED DATE/TIME: 09/15/2018 2:20 pm REASON FOR STUDY: PAIN IN LEFT SHOULDER M25.512 PAIN IN LEFT SHOULDER COMPARISON: None. NUMBER OF VIEWS: Three views. TECHNIQUE: Internal rotation, external rotation, and Y view images acquired of the left shoulder. LIMITATIONS: None. FINDINGS: MINERALIZATION: Normal. BONES: No acute fracture or dislocation. No worrisome bone lesions. JOINTS: No dislocation. VISUALIZED LUNGS AND RIBS: No pneumothorax. No rib fracture. SOFT TISSUES: No radiopaque foreign body. OTHER: No other significant finding. IMPRESSION: NEGATIVE STUDY OF THE LEFT SHOULDER. NO RADIOGRAPHIC EVIDENCE OF ACUTE INJURY. TECHNICAL DOCUMENTATION: JOB ID: [id number] [employer]- All Rights Reserved Reading location - IP/workstation name: [email or web address]
== END ==
LOC: OD 14:05
PROVIDERS: ATTEND Internal Medicine
DX: M25.512 Pain in left shoulder (principal)

== ENCOUNTER 2018-10-08 15:41 | Emergency (ER) | payer BC ==
[2018-10-08] MEDS ORDERED: ONDANSETRON 4 MG TAB.RAPDIS PO ONE (17:11)
[2018-10-08] MEDS ORDERED: OXYCODONE-ACETAMINOPHEN 5-325 MG TABLET PO ONE (17:11)
[2018-10-08] MEDS ORDERED: LIDOCAINE 1% INJ-PF (10 MG/ML) 30 ML SDV INJ ONE (17:12)
--- NOTE | 2018-10-08 17:13 | ER Document Report ---
ED Medical Screen (RME) - General Chief Complaint: Abscess Stated Complaint: ABSCESS Time Seen by Provider: 10/08/18 16:44 TRAVEL OUTSIDE OF THE [place] IN LAST 30 DAYS: No - HPI Notes: 10/08/18 17:12 Patient is a 48-year-old female that presents to the emergency department for chief complaint of abscess. Saturday patient noticed painful swelling in her gluteal region. She denies any drainage. She has been taking Percocet at home with some improvement of pain. ROS: GENERAL: Denies fever of chills CV: Denies chest pain PHYSICAL EXAMINATION: GENERAL: Well-appearing, well-nourished and in no acute distress. HEAD: Atraumatic, normocephalic. EYES: Pupils equal round extraocular movements intact, conjunctiva are normal. ENT: Nares patent NECK: Normal range of motion LUNGS: No respiratory distress Musculoskeletal: Normal range of motion NEUROLOGICAL: Normal speech, normal gait. PSYCH: Normal mood, normal affect. MDM: Patient seen and examined for rapid initial assessment. Vital signs reviewed. A comprehensive ED assessment and evaluation of the patient, analysis of test results and completion of the medical decision making process will be conducted by additional ED providers. - Related Data Allergies/Adverse Reactions: metronidazole [From Flagyl] Allergy (Severe, Verified 10/08/18 15:45) Hives Past Medical History - Social History Chew tobacco use (# tins/day): No Frequency of alcohol use: None Drug Abuse: None - Past Medical History Cardiac Medical History: Reports: Hx Hypercholesterolemia, Hx Hypertension - on meds Denies: Hx Coronary Artery Disease, Hx Heart Attack Pulmonary Medical History: Denies: Hx Asthma, Hx Bronchitis, Hx COPD, Hx Pneumonia Neurological Medical History: Denies: Hx Cerebrovascular Accident, Hx Seizures Endocrine Medical History: Reports: Hx Diabetes Mellitus Type 2 Renal/ Medical History: Denies: Hx Peritoneal Dialysis GI Medical History: Reports: Hx Gastroesophageal Reflux Disease Musculoskeltal Medical History: Reports Hx Arthritis - Osteo, Reports Hx Musculoskeletal Deformity, Reports Hx Musculoskeletal Trauma Psychiatric Medical History: Denies: Hx Depression Past Surgical History: Reports: Hx Cholecystectomy, Hx Hysterectomy, Hx Orthopedic Surgery - right shoulder X2. Denies: Hx Pacemaker - Immunizations Immunizations up to date: Yes Hx Diphtheria, Pertussis, Tetanus Vaccination: Yes Physical Exam - Vital signs Vitals: Temp Pulse Resp Pulse Ox 98.5 F 100 16 100 12/19/18 16:02 10/08/18 16:02 10/08/18 16:02 10/08/18 16:02 Course - Vital Signs Vital signs: Temp Pulse Resp BP Pulse Ox 98.5 F 100 16 100 10/08/18 16:02 10/08/18 16:02 10/08/18 16:02 10/08/18 16:02 Doctor's Discharge - Discharge Referrals: GARY GARY MD [Primary Care Provider] - Follow up as needed
[2018-10-08] MEDS ORDERED: LIDOCAINE 1% INJ (10 MG/ML) 10 ML MDV INJ ONE (17:31)
--- NOTE | 2018-10-08 18:14 | ER Document Report ---
Addendum entered and electronically signed by NATHALIE RAYMUNDO PA-C 10/09/18 17:19: Course - Re-evaluation Re-evalutation: 10/09/18 17:15 Patient was very shy about having this procedure done. She was slightly upset that we did not sedate her completely for this "embarrassing" procedure. She also felt that because of the pain she was very upset that she did not get the sedation. When I mean sedation patient wanted to be totally out. She did finally came around and after I had initially injected the local area with lidocaine she was much better I made my incision and a large amount of pus came out and she got some relief from that alone. She had a little bit more discomfort when I packed it with iodoform but she tolerated it well. I have informed patient because of her history of diabetes insulin-dependent she was to be very careful about these abscesses. I placed her on 2 antibiotics and gave her Diflucan pill and some pain medication. She is getting pain medication from her primary care physician 2 7.5 mg Percocet a day and I informed her that it probably be sore for the next couple of days. I told her I would not mind writing her for an extra amount of pills because I believe she will be taken to more than twice a day but that she needed to contact her primary care provider before doing so so that she does not violate the rules of the contract and get kicked out of the practice. She told me she would talk to her primary before dropping the prescription off. I have asked her to come back in 48 hours or sooner if it does not appear to be healing appropriately for the packing removal and for recheck and possibly to be packed again. She understands this and will abide by the suggestions. - Vital Signs Vital signs: Temp Pulse Resp BP Pulse Ox 98.5 F 100 18 128/83 H 100 10/08/18 18:49 10/08/18 18:49 10/08/18 18:49 10/08/18 18:49 10/08/18 18:49 Addendum entered and electronically signed by NATHALIE RAYMUNDO PA-C 10/09/18 17:14: Physical Exam - Vital signs Vitals: Temp Pulse Resp Pulse Ox 98.5 F 100 16 100 10/08/18 16:02 12/19/18 16:02 10/08/18 16:02 10/08/18 16:02 Interpretation: Normal - Notes Notes: PHYSICAL EXAMINATION: GENERAL: Patient is a well-nourished well-developed 48-year-old female who is in no apparent distress on physical exam but she is in obvious pain and discomfort. HEAD: Atraumatic, normocephalic. NECK: Normal range of motion, supple without lymphadenopathy LUNGS: Breath sounds clear to auscultation bilaterally and equal. No wheezes rales or rhonchi. HEART: Regular rate and rhythm without murmurs ABDOMEN: Soft, nontender, nondistended abdomen. No guarding, no rebound. No m asses appreciated. Further examination an area of concern is patient's laying prone on the gurney her left buttocks approximately shelter down the gluteal fold on the left side not extending into the center line. It is an area of approximately 3/2 cm across and in from centerline laterally approximately 2-1/2 cm. It is induration that is tender to palpate. It has moderate amount of erythema it is very fluctuant to palpation. As stated it does not extend to midline. Light touch because patient excessive amount of discomfort. Female : deferred Musculoskeletal: Normal range of motion, no pitting or edema. No cyanosis. NEUROLOGICAL: Normal speech, normal gait. Normal sensory, motor exams PSYCH: Normal mood, normal affect. SKIN: CT abdomen above Original Note: ED Skin Rash/Insect Bite/Abscs - General Chief Complaint: Abscess Stated Complaint: ABSCESS Time Seen by Provider: 10/08/18 16:44 Mode of Arrival: Ambulatory Information source: Patient Notes: Patient is a 48-year-old female comes emergency room with complaint of having a painful area on the left cheek of her buttocks. Patient states this started on Saturday just slightly be an irritated and it is gotten worse over the last few days and to the point where she cannot lay down or sit down because is so painful. She denies any history of injuries and states it just popped up. She denies having a pustule that she popped. She does admit to being hypertensive and insulin-dependent diabetic. She states nothing like this is ever happened to her before she is never had any kind of an abscess. She does smoke. 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 TRAVEL OUTSIDE OF THE [place] IN LAST 30 DAYS: No - Related Data Allergies/Adverse Reactions: metronidazole [From Flagyl] Allergy (Severe, Verified 10/08/18 15:45) Hives Past Medical History - Social History Smoking Status: Current Every Day Smoker Chew tobacco use (# tins/day): No Frequency of alcohol use: None Drug Abuse: None Family History: Reviewed & Not Pertinent, DM Patient has suicidal ideation: No Patient has homicidal ideation: No - Past Medical History Cardiac Medical History: Reports: Hx Hypercholesterolemia, Hx Hypertension - on meds Denies: Hx Coronary Artery Disease, Hx Heart Attack Pulmonary Medical History: Denies: Hx Asthma, Hx Bronchitis, Hx COPD, Hx Pneumonia Neurological Medical History: Denies: Hx Cerebrovascular Accident, Hx Seizures Endocrine Medical History: Reports: Hx Diabetes Mellitus Type 2 Renal/ Medical History: Denies: Hx Peritoneal Dialysis GI Medical History: Reports: Hx Gastroesophageal Reflux Disease Musculoskeletal Medical History: Reports Hx Arthritis - Osteo, Reports Hx Musculoskeletal Deformity, Reports Hx Musculoskeletal Trauma Psychiatric Medical History: Denies: Hx Depression Past Surgical History: Reports: Hx Cholecystectomy, Hx Hysterectomy, Hx Orthopedic Surgery - right shoulder X2. Denies: Hx Pacemaker - Immunizations Immunizations up to date: Yes Hx Diphtheria, Pertussis, Tetanus Vaccination: Yes Physical Exam - Vital signs Vitals: Temp Pulse Resp Pulse Ox 98.5 F 100 16 100 10/08/18 16:02 10/08/18 16:02 10/08/18 16:02 10/08/18 16:02 Course - Vital Signs Vital signs: Temp Pulse Resp BP Pulse Ox 98.5 F 100 16 100 10/08/18 16:02 10/08/18 16:02 10/08/18 16:02 10/08/18 16:02 Procedures - Incision and Drainage Left Buttock Time completed: 18:08 Type: Simple Anesthetic type: 1% Lidocaine mL's of anesthetic: 6 Blade size: 11 I&D procedure: Betadine prep applied, Shurclens applied, Iodoform packing placed, Sterile dressing applied Incision Method: Incision made by scalpel Amount/type of drainage: Large amount of foul-smelling yellowish white thick pus. Notes: 10/08/18 18:09 Pack the area with approximately a foot of iodoform quarter-inch. Discharge - Discharge Clinical Impression: Abscess of buttock, left Condition: Stable Disposition: HOME, SELF-CARE Instructions: Abscess ([facility]), Cephalexin ([facility]), Post Incision and Drainage, Oral Narcotic Medication ([facility]), Clindamycin ([facility]) Additional Instructions: ABSCESS: You have an abscess (boil). This a pus-forming infection, usually due to staph. Some boils may be left to drain on their own, but most require lancing. From the time the tender lump first appears, it may be three or four days before the abscess is ready to maria luisa. Local heat and rest help at this stage of treatment. An antibiotic may prevent spread of the infection. Once the abscess is opened, packing may be placed into it. This is done so pus is not sealed inside by premature closure of the cavity. The packing will be removed at your follow-up visit or you may be advised to remove it yourself at home. Sometimes this packing must be replaced a few times during healing. The wound will heal with surprisingly little scar. Depending on the size and location of an abscess, healing can take one to four weeks. You may shower and wash the area around the incision site two or three ti mes a day. Antibiotics may be prescribed, but are usually not necessary after an abscess has been drained. If you develop fever, chills, worsening pain, or increasing swelling in the area, call the doctor or return immediately. POST INCISION AND DRAINAGE: You have had an incision made to allow drainage of an abscess. The incision must remain open so that pus and debris can drain from the wound. If the abscess cavity is large, packing is placed. This keeps the tissues from collapsing and trapping pus inside, while the body shrinks the cavity. The packing may need to be replaced every day or two. The physician will instruct you on the packing. Keep a bulky dressing over the area. Replace it if it becomes saturated with blood or pus. Do not disturb the packing (if present). You may shower and cleanse the area with gentle soap and warm water two or three times a day. Local warmth may be soothing, and may promote faster healing. Return if you develop high fever or chills, or if you note spreading redness, increasing swelling, or increasing tenderness. ORAL NARCOTIC MEDICATION: You have been given a prescription for pain control. This medication is a narcotic. It's best taken with food, as nausea can result if taken on an empty stomach. Don't operate machinery or drive within six hours of taking this medication. Do not combine this medicine with alcohol, or with any medication which can cause sedation (such as cold tablets or sleeping pills) unless you get permission from the physician. Narcotics tend to cause constipation. If possible, drink plenty of fluids and eat a diet high in fiber and fruits. CEPHALEXIN: The antibiotic you've been prescribed is a member of the cephalosporin class. This type of antibiotic covers a wide variety of infections, including those of the skin, lungs, and urinary tract. It's useful for staph infections. This antibiotic is slightly similar to the penicillin family. In rare cases, a person who is allergic to penicillin will also be allergic to this medication. If you have had a severe allergic reaction to penicillin, and have not taken this antibiotic since that time, notify your doctor. Antibiotics which cover many germs ("broad spectrum" antibiotics) are more likely to cause diarrhea or "yeast" infections. Women prone to vaginal yeast problems may suffer an attack after taking this antibiotic. In infants, oral thrush (white spots "stuck" on the cheek) or yeast diaper rash may result. See your doctor if these problems occur. Call at once if you develop itching, hives, shortness of breath, or lightheadedness. FOLLOW-UP CARE: Most simple abscesses will not require a follow up visit. If you had packing placed in the abscess, remove it as instructed by the physician. If you have been referred to a physician for follow-up care, call the physicians office for an appointment as you were instructed or within the next two days. If you exp erience worsening or a significant change in your symptoms, return to the Emergency Department at any time for re-evaluation. The other antibiotic and putting on his clindamycin it is 1 pill 4 times a day. Also putting you on Diflucan to stop you from getting a yeast infection. As we discussed use warm moist compresses 3-4 times a day for 10-15 minutes. Do not put in a microwave do not put it on his boiling stove. Just as warm as you can stand it from the sink. As we have also discussed do not get in the bathtub or [place] or Gutierrez whirlpool. This is because she got an opening with a string in it to your body parts and if he gets worse or infected if you sit in a dirty bath or pool or tub. As we also discussed I will write you some pain medication but you are with a physician that does give you some pain meds so before you drop off the prescription to get filled discussed with him to make sure it is okay. I do believe he will need a couple extra for the next day or 2 but other than that you should be okay. I would like to have you back in the emergency room in 48 hours for a recheck of the area and pulling of the packing. At that time we will determine whether we have to repack it or not. Also if the string comes out it is not a major deal just continue with the warm moist compresses. And when all this fails if you have any concerns or problems or it does not feel ri ght to come back and let us look at it sooner. Prescriptions: Cephalexin Monohydrate [Keflex 500 mg Capsule] 500 mg PO Q6H 5 Days #28 capsule Clindamycin HCl [Cleocin 300 mg Capsule] 300 mg PO Q6 #40 capsule Fluconazole [Diflucan] 150 mg PO ASDIR #2 tablet Oxycodone HCl/Acetaminophen [Percocet 5-325 mg Tablet] 1 - 2 tab PO Q4H PRN #10 tablet PRN Reason: Referrals: GARY GARY MD [Primary Care Provider] - Follow up as needed
[2018-10-08 18:50] VITALS: BP 128/83
== END 2018-10-08 18:50 | disposition home or self-care (01) ==
LOC: ER 15:41
DX: L02.31 Cutaneous abscess of buttock (principal); E11.9 Type 2 diabetes mellitus without complications; Z79.4 Long term (current) use of insulin; Z79.891 Long term (current) use of opiate analgesic; F17.200 Nicotine dependence, unspecified, uncomplicated; Z88.1 Allergy status to other antibiotic agents
CPT/HCPCS: 99283; 87070; 87205; 87075; 87077; 87186; 10060; A6266; S0119; J3490

== ENCOUNTER 2018-10-10 08:21 | Emergency (ER) | payer BC ==
[2018-10-10] MEDS ORDERED: LIDOCAINE 1% INJ-PF (10 MG/ML) 30 ML SDV INJ ONE (08:56)
[2018-10-10] MEDS ORDERED: OXYCODONE-ACETAMINOPHEN 5-325 MG TABLET PO ONE (09:16)
--- NOTE | 2018-10-10 09:43 | ER Document Report ---
HPI - HPI Time Seen by Provider: 10/10/18 08:49 Pain Level: 1 Notes: Patient is a 48-year-old female who presents to the emergency department for a wound recheck. Patient had an incision and drainage to the left buttock performed 2 days ago here in the emergency department and packing was placed. Patient reports she is taking her antibiotics as prescribed, denies any fevers and reports moderate drainage from the area. - REPRODUCTIVE Reproductive: DENIES: : Past Medical History - General Information source: Patient - Social History Smoking Status: Never Smoker Chew tobacco use (# tins/day): No Frequency of alcohol use: None Drug Abuse: None Family History: Reviewed & Not Pertinent, DM Patient has suicidal ideation: No Patient has homicidal ideation: No - Past Medical History Cardiac Medical History: Reports: Hx Hypercholesterolemia, Hx Hypertension - on meds Denies: Hx Coronary Artery Disease, Hx Heart Attack Pulmonary Medical History: Denies: Hx Asthma, Hx Bronchitis, Hx COPD, Hx Pneumonia Neurological Medical History: Denies: Hx Cerebrovascular Accident, Hx Seizures Endocrine Medical History: Reports: Hx Diabetes Mellitus Type 2 Renal/ Medical History: Denies: Hx Peritoneal Dialysis GI Medical History: Reports: Hx Gastroesophageal Reflux Disease Musculoskeletal Medical History: Reports Hx Arthritis - Osteo, Reports Hx Musculoskeletal Deformity, Reports Hx Musculoskeletal Trauma Psychiatric Medical History: Denies: Hx Depression Past Surgical History: Reports: Hx Cholecystectomy, Hx Hysterectomy, Hx Orthopedic Surgery - right shoulder X2. Denies: Hx Pacemaker - Immunizations Immunizations up to date: Yes Hx Diphtheria, Pertussis, Tetanus Vaccination: Yes Vertical Provider Document - CONSTITUTIONAL Notes: PHYSICAL EXAMINATION: GENERAL: Well-appearing, well-nourished and in no acute distress. HEAD: Atraumatic, normocephalic. EYES: Pupils equal round extraocular movements intact, conjunctiva are normal. ENT: Nares patent NECK: Normal range of motion LUNGS: No respiratory distress Musculoskeletal: Normal range of motion NEUROLOGICAL: Normal speech, normal gait. PSYCH: Normal mood, normal affect. SKIN: Warm, Dry, normal turgor, no rashes or lesions noted. Area of induration without fluctuance noted to left inner buttock, packing is in place. - INFECTION CONTROL TRAVEL OUTSIDE OF THE [place] IN LAST 30 DAYS: No Course - Re-evaluation Re-evalutation: Packing was removed from left buttock, patient tolerated well. Incision remains open and allowing drainage. Patient will continue to take p.o. antibiotics and will continue sits baths at home. Discussed with patient that if this abscess recurs in this area she may need surgical consultation however right now it appears to be doing well. Patient verbalized understanding of same and will be discharged home in stable condition. - Vital Signs Vital signs: Temp Pulse Resp BP Pulse Ox 98.5 F 97 116/81 98 10/10/18 08:26 10/10/18 08:26 10/10/18 08:26 10/10/18 08:26 Discharge - Discharge Clinical Impression: Abscess Condition: Stable Disposition: HOME, SELF-CARE Additional Instructions: ABSCESS: You have an abscess (boil). This a pus-forming infection, usually due to staph. Some boils may be left to drain on their own, but most require lancing. From the time the tender lump first appears, it may be three or four days before the abscess is ready to maria luisa. Local heat and rest help at this stage of treatment. An antibiotic may prevent spread of the infection. Once the abscess is opened, packing may be placed into it. This is done so pus is not sealed inside by premature closure of the cavity. The packing will be removed at your follow-up visit or you may be advised to remove it yourself at home. Sometimes this packing must be replaced a few times during healing. The wound will heal with surprisingly little scar. Depending on the size and location of an abscess, healing can take one to four weeks. You may shower and wash the area around the incision site two or three times a day. Antibiotics may be prescribed, but are usually not necessary after an abscess has been drained. If you develop fever, chills, worsening pain, or increasing swelling in the area, call the doctor or return immediately. FOLLOW-UP CARE: Most simple abscesses will not require a follow up visit. If you had packing placed in the abscess, remove it as instructed by the physician. If you have been referred to a physician for follow-up care, call the physicians office for an appointment as you were instructed or within the next two days. If you experience worsening or a significant change in your symptoms, return to the Emergency Department at any time for re-evaluation. The packing was removed from your abscess today. Please continue the antibiotics as prescribed. Please continue to do Epsom salts sits baths at least 3 times a day. Keep the dressing clean and dry. Return for a wound recheck in 2 days. Return sooner if you develop worsening symptoms or develop a fever chills or any other symptom that is concerning to you. Forms: Return to Work Referrals: GARY GARY MD [Primary Care Provider] - Follow up as needed
[2018-10-10 09:54] VITALS: BP 135/75
== END 2018-10-10 09:54 | disposition home or self-care (01) ==
LOC: ER 08:21
DX: Z98.890 Other specified postprocedural states (principal); L02.31 Cutaneous abscess of buttock
CPT/HCPCS: 99283

== ENCOUNTER 2018-10-15 09:52 | Emergency (ER) | payer BC ==
[2018-10-15 11:31] VITALS: BP 131/79
--- NOTE | 2018-10-15 11:33 | ER Document Report ---
ED Wound - General Chief Complaint: Wound Recheck Stated Complaint: WOUND RECHECK Time Seen by Provider: 10/15/18 11:08 Mode of Arrival: Ambulatory Information source: Patient Notes: 88-year-old female presented to ED for recheck of I&D on buttocks that was completed last week. She had the I&D with packing and then was seen 2 days later to have the packing removed and was supposed to be seen again today to ensure that the abscess is healing properly. There is no redness no inflammation no signs of acute infection to the area. This site has small amount of drainage. Patient states she is still taken her antibiotics as instructed. And will follow up with her primary doctor. TRAVEL OUTSIDE OF THE [place] IN LAST 30 DAYS: No - HPI Patient complains to provider of: Other - Recheck of abscess Occurred: Last week Onset/Duration: Better Quality of pain: Achy, Pressure Severity: Moderate Pain Level: 2 Skin Color: Normal Associated Symptoms: Other - Abscess I&D's last week minimal drainage at this time - Related Data Allergies/Adverse Reactions: metronidazole [From Flagyl] Allergy (Severe, Verified 10/15/18 09:53) Hives Past Medical History - General Information source: Patient - Social History Smoking Status: Current Every Day Smoker Cigarette use (# per day): Yes Smoking Education Provided: Yes - 4 minutes 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 Family History: Reviewed & Not Pertinent, DM Patient has suicidal ideation: No Patient has homicidal ideation: No - Past Medical History Cardiac Medical History: Reports: Hx Hypercholesterolemia, Hx Hypertension - on meds EENT Medical History: Reports: None Neurological Medical History: Reports: None Endocrine Medical History: Reports: Hx Diabetes Mellitus Type 2 Renal/ Medical History: Reports: None Malignancy Medical History: Reports: None GI Medical History: Reports: Hx Gastroesophageal Reflux Disease Musculoskeletal Medical History: Reports Hx Arthritis - Osteo, Reports Hx Musculoskeletal Deformity, Reports Hx Musculoskeletal Trauma Skin Medical History: Reports Hx Cellulitis Psychiatric Medical History: Reports: None Traumatic Medical History: Reports: None Infectious Medical History: Reports: None Past Surgical History: Reports: Hx Cholecystectomy, Hx Hysterectomy, Hx Orthopedic Surgery - right shoulder X2. Denies: Hx Pacemaker - Immunizations Immunizations up to date: Yes Hx Diphtheria, Pertussis, Tetanus Vaccination: Yes Review of Systems - Review of Systems Constitutional: No symptoms reported EENT: No symptoms reported Cardiovascular: No symptoms reported Respiratory: No symptoms reported Gastrointestinal: No symptoms reported Genitourinary: No symptoms reported Female Genitourinary: No symptoms reported Musculoskeletal: No symptoms reported Skin: Other - Abscess healing well I&D minimal drainage no redness no inflammation. Hematologic/Lymphatic: No symptoms reported Neurological/Psychological: No symptoms reported -: Yes All other systems reviewed and negative Physical Exam - Vital signs Vitals: Temp Pulse Resp BP Pulse Ox 98.3 F 91 16 134/84 H 99 10/15/18 10:00 10/15/18 10:00 10/15/18 10:00 10/15/18 10:00 10/15/18 10:00 Interpretation: Normal - General General appearance: Appears well, Alert - HEENT Head: Normocephalic, Atraumatic Eyes: Normal Pupils: PERRL - Respiratory Respiratory status: No respiratory distress Chest status: Nontender Breath sounds: Normal Chest palpation: Normal - Cardiovascular Rhythm: Regular Heart sounds: Normal auscultation Murmur: No - Abdominal Inspection: Normal Distension: No distension Bowel sounds: Normal Tenderness: Nontender Organomegaly: No organomegaly - Back Back: Normal, Nontender - Extremities General upper extremity: Normal inspection, Nontender, Normal color, Normal ROM, Normal temperature General lower extremity: Normal inspection, Nontender, Normal color, Normal ROM, Normal temperature, Normal weight bearing. No: Marc's sign - Neurological Neuro grossly intact: Yes Cognition: Normal Orientation: AAOx4 Jeanie Coma Scale Eye Opening: Spontaneous [place] Coma Scale Verbal: Oriented Jeanie Coma Scale Motor: Obeys Commands Jeanie Coma Scale Total: 15 Speech: Normal Motor strength normal: LUE, RUE, LLE, RLE Sensory: Normal - Psychological Associated symptoms: Normal affect, Normal mood - Skin Skin Temperature: Warm Skin Moisture: Dry Skin Color: Normal Location of irregularity: Other - Left buttocks I&D completed on 10/08/2018. She had packing at that time and then it was removed a couple days later. Patient came back to the ED for reassessment today. The site is healing well there is no redness there is no inflammation there is very minimal drainage at the site. Patient will be discharged home to continue current medications. Irregularity with: Tenderness, Other - Minimal drainage. negative: Inflammation Course - Vital Signs Vital signs: Temp Pulse Resp BP Pulse Ox 97.3 F 83 16 131/79 H 100 10/15/18 11:30 10/15/18 11:30 10/15/18 11:30 10/15/18 11:30 10/15/18 11:30 Discharge - Discharge Clinical Impression: Encounter for wound re-check Condition: Stable Disposition: HOME, SELF-CARE Additional Instructions: You were seen today for a recheck of your abscess that was I&D several days ago. Epsom Salt Soaks Soak the wound area in a container of warm epsom salt water. If you can't get the wound area into a bucket or burris, use a folded towel soaked in the epsom salt solution and apply to the area. Use clean hot tap water (about the temperature of a very warm bath), mixing in about one (1) teaspoon for every pint of water. Two gallon --> 16 teaspoons Epsom Salts One gallon --> 8 teaspoons Epsom Salts Two quarts --> 4 teaspoons Epsom Salts One quart --> 2 teaspoons Epsom Salts Soak the wound for about 20 minutes while gently moving it around in the water. Repeat this four (4) times a day. Continue using the shower directly on the wound to rinse off after you have soaked in the tub. Continue taking your antibiotics as prescribed until they are completed. These use Tylenol and ibuprofen for the pain. FOLLOW-UP CARE: If you have been referred to a physician for follow-up care, call the physicians office for an appointment as you were instructed or within the next two days. If you experience worsening or a significant change in your symptoms, notify the physician immediately or return to the Emergency Department at any time for re-evaluation. Forms: Elevated Blood Pressure, Special Work Note, Return to Work Referrals: GARY GARY MD [Primary Care Provider] - Follow up in 3-5 days
== END 2018-10-15 11:36 | disposition home or self-care (01) ==
LOC: ER 09:52
DX: Z48.817 Encounter for surgical aftercare following surgery on the skin and subcutaneous tissue (principal)
CPT/HCPCS: 99281; 99406

== ENCOUNTER 2018-11-19 14:58 | Emergency (ER) | payer BC ==
[2018-11-19 15:18] VITALS: BP 116/78
--- NOTE | 2018-11-19 15:43 | ER Document Report ---
ED Medical Screen (RME) - General Chief Complaint: Leg Pain Stated Complaint: LEFT LEG PAIN Time Seen by Provider: 11/19/18 15:33 Primary Care Provider: GARY GARY MD [Primary Care Provider] - Follow up as needed TRAVEL OUTSIDE OF THE [place] IN LAST 30 DAYS: No - Related Data Allergies/Adverse Reactions: metronidazole [From Flagyl] Allergy (Severe, Verified 10/15/18 09:53) Hives Past Medical History - Past Medical History Cardiac Medical History: Reports: Hx Hypercholesterolemia, Hx Hypertension - on meds Denies: Hx Coronary Artery Disease, Hx Heart Attack Pulmonary Medical History: Denies: Hx Asthma, Hx Bronchitis, Hx COPD, Hx Pneumonia Neurological Medical History: Denies: Hx Cerebrovascular Accident, Hx Seizures Endocrine Medical History: Reports: Hx Diabetes Mellitus Type 2 Renal/ Medical History: Denies: Hx Peritoneal Dialysis GI Medical History: Reports: Hx Gastroesophageal Reflux Disease Musculoskeltal Medical History: Reports Hx Arthritis - Osteo, Reports Hx Musculoskeletal Deformity, Reports Hx Musculoskeletal Trauma Skin Medical History: Reports Hx Cellulitis Psychiatric Medical History: Denies: Hx Depression Past Surgical History: Reports: Hx Cholecystectomy, Hx Hysterectomy, Hx Orthopedic Surgery - right shoulder X2. Denies: Hx Pacemaker - Immunizations Immunizations up to date: Yes Hx Diphtheria, Pertussis, Tetanus Vaccination: Yes Physical Exam - Vital signs Vitals: Temp Pulse Resp BP Pulse Ox 98.1 F 87 16 116/78 100 11/19/18 15:17 11/19/18 15:17 11/19/18 15:17 11/19/18 15:17 11/19/18 15:17 Course - Vital Signs Vital signs: Temp Pulse Resp BP Pulse Ox 98.1 F 87 16 116/78 100 11/19/18 15:17 11/19/18 15:17 11/19/18 15:17 11/19/18 15:17 11/19/18 15:17 Doctor's Discharge - Discharge Referrals: GARY GARY MD [Primary Care Provider] - Follow up as needed
[2018-11-19] MEDS ORDERED: APIXABAN 5 MG TABLET PO ONE (15:55)
--- NOTE | 2018-11-19 15:56 | ER Document Report ---
ED Extremity Problem, Lower - General Chief Complaint: Leg Pain Stated Complaint: LEFT LEG PAIN Time Seen by Provider: 11/19/18 15:33 Primary Care Provider: GARY GARY MD [Primary Care Provider] - Follow up as needed Notes: 48-year-old female presents emergency department with complaints of bilateral calf pain. Patient followed up with Dr. Gary for a routine checkup and told him that he was having calf pain. He ordered a venous Doppler outpatient. Patient had the test done and it came back positive for DVT in the left lower extremity. Patient was sent to the emergency department for further treatment. Patient denies any current chest pain, shortness of breath. Patient denies a history of recent travel, recent surgery, history of DVT or PE. TRAVEL OUTSIDE OF THE [place] IN LAST 30 DAYS: No - HPI Occurred: Other - 2 weeks Onset/Duration: Gradual, Constant Quality of pain: Achy Recent injury: No Exacerbated by: Nothing Relieved by: Nothing - Related Data Allergies/Adverse Reactions: metronidazole [From Flagyl] Allergy (Severe, Verified 10/15/18 09:53) Hives Past Medical History - General Information source: Patient - Social History Smoking Status: Current Some Day Smoker Family History: Reviewed & Not Pertinent, DM Patient has suicidal ideation: No Patient has homicidal ideation: No - Past Medical History Cardiac Medical History: Reports: Hx Hypercholesterolemia, Hx Hypertension - on meds Denies: Hx Coronary Artery Disease, Hx Heart Attack Pulmonary Medical History: Denies: Hx Asthma, Hx Bronchitis, Hx COPD, Hx Pneumonia Neurological Medical History: Denies: Hx Cerebrovascular Accident, Hx Seizures Endocrine Medical History: Reports: Hx Diabetes Mellitus Type 2 Renal/ Medical History: Denies: Hx Peritoneal Dialysis GI Medical History: Reports: Hx Gastroesophageal Reflux Disease Musculoskeletal Medical History: Reports Hx Arthritis - Osteo, Reports Hx Musculoskeletal Deformity, Reports Hx Musculoskeletal Trauma Skin Medical History: Reports Hx Cellulitis Psychiatric Medical History: Denies: Hx Depression Past Surgical History: Reports: Hx Cholecystectomy, Hx Hysterectomy, Hx Orthopedic Surgery - right shoulder X2. Denies: Hx Pacemaker - Immunizations Immunizations up to date: Yes Hx Diphtheria, Pertussis, Tetanus Vaccination: Yes Review of Systems - Review of Systems Constitutional: No symptoms reported EENT: No symptoms reported Cardiovascular: No symptoms reported Respiratory: No symptoms reported Gastrointestinal: No symptoms reported Genitourinary: No symptoms reported Female Genitourinary: No symptoms reported Musculoskeletal: Muscle pain Skin: No symptoms reported Hematologic/Lymphatic: No symptoms reported Neurological/Psychological: No symptoms reported -: Yes All other systems reviewed and negative Physical Exam - Vital signs Vitals: Temp Pulse Resp BP Pulse Ox 98.1 F 87 16 116/78 100 11/19/18 15:17 11/19/18 15:17 11/19/18 15:17 11/19/18 15:17 11/19/18 15:17 - Notes Notes: PHYSICAL EXAMINATION: GENERAL: Well-appearing, well-nourished and in no acute distress. HEAD: Atraumatic, normocephalic. EYES: Pupils equal round and reactive to light, extraocular movements intact, conjunctiva are normal. ENT: Nares patent, oropharynx clear without exudates. Moist mucous membranes. NECK: Normal range of motion, supple without lymphadenopathy LUNGS: Breath sounds clear to auscultation bilaterally and equal. No wheezes rales or rhonchi. HEART: Regular rate and rhythm without murmurs ABDOMEN: Soft, nontender, nondistended abdomen. No guarding, no rebound. No masses appreciated. Female : deferred Musculoskeletal: Normal range of motion. L calf tenderness to palpation. NEUROLOGICAL: Cranial nerves grossly intact. Normal speech. Normal sensory, motor exams PSYCH: Normal mood, normal affect. SKIN: Warm, Dry, normal turgor, no rashes or lesions noted. Course - Re-evaluation Re-evalutation: 11/19/18 15:[address] Gary to discuss the patient. He has no recommendations as to which anticoagulant to start the patient on. I will start the patient on apixaban. I instructed the patient to take the medication prescribed as directe d, to follow-up with Dr. Gary for a reevaluation this week, and to return to the emergency department if she begins having any chest pain or shortness of breath. I will only give the patient 1 week prescription. I told her she will need to see Dr. Gary within the next week for an additional rx. Patient given first dose of medication in the ED. The patient feels agreeable with plan of care. 11/19/18 16:06 - Vital Signs Vital signs: Temp Pulse Resp BP Pulse Ox 98.1 F 87 16 116/78 100 11/19/18 15:17 11/19/18 15:17 11/19/18 15:17 11/19/18 15:17 11/19/18 15:17 Discharge - Discharge Clinical Impression: DVT (deep venous thrombosis) Qualifiers: DVT location: lower extremity Affected thrombotic vein of extremity: unspecified vein of extremity Chronicity: acute Laterality: left Qualified Code(s): I82.402 - Acute embolism and thrombosis of unspecified deep veins of left lower extremity Condition: Good Disposition: HOME, SELF-CARE Instructions: DVT Outpatient Treatment ([facility]) Prescriptions: Apixaban [Eliquis 5 mg Tablet] 10 mg PO BID 7 Days #14 tablet Referrals: GARY GARY MD [Primary Care Provider] - Follow up as needed
== END 2018-11-19 16:18 | disposition home or self-care (01) ==
LOC: ER 14:58
DX: I82.402 Acute embolism and thrombosis of unspecified deep veins of left lower extremity (principal); M79.605 Pain in left leg; F17.200 Nicotine dependence, unspecified, uncomplicated; E78.00 Pure hypercholesterolemia, unspecified; I10 Essential (primary) hypertension; E11.9 Type 2 diabetes mellitus without complications; Z90.49 Acquired absence of other specified parts of digestive tract; Z90.710 Acquired absence of both cervix and uterus
CPT/HCPCS: 99283

== ENCOUNTER → 2018-11-19 | Outpatient (CLI) | payer BC ==
--- NOTE | 2018-11-19 16:49 | XCELERA REPORT ---
[address] [address] Lower Extremity Venous Evaluation Procedure: Color flow and duplex imaging bilaterally of the veins of the lower extremities as well as the Common Femoral veins. Right Sided Venous Evaluation Normal vessel filling wall to wall, compression and augmentation as well as Colour flow down to the infrageniculate veins. Left Sided Venous Evaluation Abnormal vessel filling , lack on compression and Colour flow in one of two Posterior tibial veins.. Otherwise completely normal. down to the infrageniculate veins. Critical Findings Discussed with Dr Gary, who advised sending the patient to the Emergency room, so done, also relayed information re very limited below knee DVT toEmergency room provider. Interpretation Summary Normal compression, patency, spontaneous and phasic flow of the right lower extremity veins. Deep venous thrombosis, acute, very limited, in one left sided Posterior Tibial vein. Other left sided veins normal. Name: DEANA AZEVEDO Age: 48 yrs Gender: Female : 1970 Patient Status: Outpatient Patient Location: Study Date: 11/19/2018 02:13 PM Reason For Study: BLE PAIN, PHLEBITIS Ordering Physician: GARY GARY Performed By: Carlos Mosley : GARY GARY > Zay Pacheco
== END ==
LOC: SP 14:56
PROVIDERS: ATTEND Internal Medicine
DX: I80.12 Phlebitis and thrombophlebitis of left femoral vein (principal)
CPT/HCPCS: 93970

== ENCOUNTER → 2018-12-02 | Outpatient (CLI) | payer BC ==
--- NOTE | 2018-12-02 11:46 | XCELERA REPORT ---
[address] [address] Upper Extremity Venous Evaluation Name: DEANA AZEVEDO Age: 48 yrs Gender: Female : 1970 Patient Status: Outpatient Patient Location: [facility] Study Date: 12/02/2018 09:07 AM Procedure: Unilateral duplex scan of the left upper extremity veins was performed, including responses to compression and other maneuvers. Reason For Study: LUE PAIN Ordering Physician: GARY GARY Performed By: Carlos Mosley Left Sided Venous Evaluation Normal vessel filling wall to wall, compression and augmentation as well as Colour flow down to the forearm veins. Interpretation Summary Normal compression, patency, spontaneous and phasic flow of the left upper extremity veins. : GARY GARY > Zay Pacheco
== END ==
LOC: RAD 08:49
PROVIDERS: ATTEND Internal Medicine
DX: M79.602 Pain in left arm (principal)
CPT/HCPCS: 93971

== ENCOUNTER → 2019-01-19 | Outpatient (CLI) | payer BC ==
--- NOTE | 2019-01-19 11:17 | RADIOLOGY REPORT (SQ) ---
EXAM DESCRIPTION: U/S ABDOMEN COMPLETE W/O DOP COMPLETED DATE/TIME: 01/19/2019 8:28 am REASON FOR STUDY: UNSPECIFIED ABDOMINAL PAIN/PELVIC PAIN R10.9 UNSPECIFIED ABDOMINAL PAIN R10.2 PE LVIC AND PERINEAL PAIN COMPARISON: None. TECHNIQUE: Dynamic and static grayscale images acquired of the abdomen and recorded on PACS. Additio nal selected color Doppler and spectral images recorded. Note: Study does not meet criteria for complete doppler/duplex scan LIMITATIONS: None. FINDINGS: PANCREAS: No masses. Visualized pancreatic duct normal caliber. LIVER: The liver is echogenic consistent with fatty infiltration. LIVER VASCULATURE: Normal directional flow of the main portal vein and hepatic veins. GALLBLADDER: Surgically absent. ULTRASOUND-DETECTED ABBOTT'S SIGN: Negative. INTRAHEPATIC DUCTS AND COMMON DUCT: CBD and intrahepatic ducts normal caliber. No filling defects. INFERIOR VENA CAVA: Normal flow. AORTA: No aneurysm. RIGHT KIDNEY: Normal size. Normal echogenicity. No solid or suspicious masses. No hydronephros is. No calcifications. LEFT KIDNEY: Normal size. Normal echogenicity. No solid or suspicious masses. No hydronephrosi s. No calcifications. SPLEEN: Normal size. No solid masses. PERITONEAL AND PLEURAL SPACES: No ascites or effusions. OTHER: No other significant finding. IMPRESSION: 1. Prior cholecystectomy. 2. Fatty infiltrated liver. TECHNICAL DOCUMENTATION: JOB ID: [id number] [employer]- All Rights Reserved Reading location - IP/workstation name: [email or web address]
--- NOTE | 2019-01-19 12:24 | RADIOLOGY REPORT (SQ) ---
EXAM DESCRIPTION: U/S NON-OB PELVIS W/O DOP COMPLETED DATE/TIME: 01/19/2019 8:28 am REASON FOR STUDY: UNSPECIFIED ABDOMINAL PAIN/PELVIC PAIN R10.9 UNSPECIFIED ABDOMINAL PAINR10.2 PEL LUZ AND PERINEAL PAIN COMPARISON: Pelvic ultrasound 07/30/2017, 04/24/2017, 03/04/2014 TECHNIQUE: Dynamic and static grayscale images acquired of the pelvis via transabdominal approach an d recorded on PACS. Additional selected color Doppler and spectral images recorded. LIMITATIONS: None. FINDINGS: UTERUS: Surgically absent, post hysterectomy in 1999 RIGHT OVARY AND DOPPLER: Right ovary and adnexa not well seen due to bowel gas. LEFT OVARY AND DOPPLER: Left ovary and adnexa not well seen due to bowel gas. FREE FLUID: None noted. OTHER: No other significant finding. IMPRESSION: Post hysterectomy. Ovaries not visualized TECHNICAL DOCUMENTATION: JOB ID: [id number] [employer]- All Rights Reserved Rev-03/07 Reading location - IP/workstation name: [email or web address]
== END ==
LOC: RAD 07:38
PROVIDERS: ATTEND Internal Medicine
DX: R10.9 Unspecified abdominal pain (principal); R10.2 Pelvic and perineal pain; K76.0 Fatty (change of) liver, not elsewhere classified; Z90.710 Acquired absence of both cervix and uterus
CPT/HCPCS: 76700; 76856

== ENCOUNTER 2020-03-06 11:12 | Emergency (ER) | payer SELFPAY ==
--- NOTE | 2020-03-06 11:28 | ER Document Report ---
ED Medical Screen (RME) - General Chief Complaint: Leg Pain Stated Complaint: LEG/FEET PAIN Time Seen by Provider: 03/06/20 11:24 Primary Care Provider: GARY GARY MD [Primary Care Provider] - Follow up as needed Mode of Arrival: Ambulatory Information source: Patient Notes: 49-year-old female patient with history of DVT not on any anticoagulation presents to the emergency department with chief complaint of left calf pain. She reports pain has been present for approximately 1 month but has worsened over the last few days. No obvious swelling or erythema noted. I have greeted and performed a rapid initial assessment of this patient. A comprehensive ED assessment and evaluation of the patient, analysis of test results and completion of the medical decision making process will be conducted by additional ED providers. I have specifically instructed the patient or family members with the patient to immediately return to any nursing staff should anything change in the patient's condition or with their chief complaint. TRAVEL OUTSIDE OF THE [place] IN LAST 30 DAYS: No - Related Data Allergies/Adverse Reactions: metronidazole [From Flagyl] Allergy (Severe, Verified 03/06/20 11:24) Hives Past Medical History - Social History Chew tobacco use (# tins/day): No Frequency of alcohol use: None Drug Abuse: None - Past Medical History Cardiac Medical History: Reports: Hx Hypercholesterolemia, Hx Hypertension Denies: Hx Congestive Heart Failure, Hx Coronary Artery Disease, Hx Heart Attack Pulmonary Medical History: Denies: Hx Asthma, Hx Bronchitis, Hx COPD, Hx Pneumonia, Hx Tuberculosis Neurological Medical History: Denies: Hx Cerebrovascular Accident, Hx Seizures, Hx Parkinson's Disease Endocrine Medical History: Reports: Hx Diabetes Mellitus Type 2 Renal/ Medical History: Denies: Hx End Stage Renal Disease, Hx Kidney Stones, Hx Peritoneal Dialysis GI Medical History: Reports: Hx Gastroesophageal Reflux Disease. Denies: Hx Cirrhosis, Hx Ulcer Musculoskeltal Medical History: Reports Hx Arthritis, Denies Hx Multiple Sclerosis, Reports Hx Musculoskeletal Deformity, Reports Hx Musculoskeletal Trauma Skin Medical History: Reports Hx Cellulitis Psychiatric Medical History: Denies: Hx Bipolar Disorder, Hx Depression, Hx Schizophrenia Past Surgical History: Reports: Hx Cholecystectomy, Hx Hysterectomy, Hx Orthopedic Surgery - right shoulder X2. Denies: Hx Pacemaker - Immunizations Immunizations up to date: Yes Hx Diphtheria, Pertussis, Tetanus Vaccination: Yes Physical Exam - Vital signs Vitals: Temp Pulse Resp BP Pulse Ox 98.2 F 97 16 123/77 98 03/06/20 11:17 03/06/20 11:17 03/06/20 11:17 03/06/20 11:17 03/06/20 11:17 Course - Vital Signs Vital signs: Temp Pulse Resp BP Pulse Ox 98.2 F 97 16 123/77 98 03/06/20 11:24 03/06/20 11:17 03/06/20 11:17 03/06/20 11:17 03/06/20 11:17 Doctor's Discharge - Discharge Referrals: GARY GARY MD [Primary Care Provider] - Follow up as needed
[2020-03-06 11:51] LABS: ABSOLUTE EOSINOPHILS # (AUTO) 0.1 10^3/uL (0.0-0.6); ABSOLUTE LYMPHOCYTES (AUTO) 3.2 10^3/uL (0.5-4.7); ABSOLUTE MONOCYTES (AUTO) 0.5 10^3/uL (0.1-1.4); ABSOLUTE NEUT (AUTO) 2.8 10^3/uL (1.7-8.2); BASOPHILS % (AUTO) 0.4 % (0-2); EOSINOPHILS % (AUTO) 1.3 % (0-6); HEMATOCRIT 36.4 % (36.0-47.0); HEMOGLOBIN 12.7 g/dL (12.0-15.5); LYMPHOCYTES % (AUTO) 47.9 % (13-45); MEAN CORPUSCULAR HEMOGLOBIN 30.7 pg (27.0-33.4); MEAN CORPUSCULAR VOLUME 88 fl (80-97); MONOCYTES % (AUTO) 7.5 % (3-13); PLATELET COUNT 238 10^3/uL (150-450); RED BLOOD COUNT 4.15 10^6/uL (3.72-5.28); RED CELL DISTRIBUTION WIDTH 12.4 % (11.5-14.0); SEGMENTED NEUTROPHILS % (AUTO) 42.9 % (42-78); TOTAL CELLS COUNTED % (AUTO) 100 %; WHITE BLOOD COUNT 6.6 10^3/uL (4.0-10.5)
--- NOTE | 2020-03-06 11:56 | ER Document Report ---
ED Extremity Problem, Lower - General Chief Complaint: Leg Pain Stated Complaint: LEG/FEET PAIN Time Seen by Provider: 03/06/20 11:24 Primary Care Provider: GARY GARY MD [Primary Care Provider] - Follow up as needed Mode of Arrival: Ambulatory TRAVEL OUTSIDE OF THE [place] IN LAST 30 DAYS: No - Related Data Allergies/Adverse Reactions: metronidazole [From Flagyl] Allergy (Severe, Verified 03/06/20 11:24) Hives Past Medical History - General Information source: Patient - Social History Smoking Status: Current Every Day Smoker Chew tobacco use (# tins/day): No Frequency of alcohol use: None Drug Abuse: None Family History: DM Patient has homicidal ideation: No - Past Medical History Cardiac Medical History: Reports: Hx Hypercholesterolemia, Hx Hypertension Denies: Hx Congestive Heart Failure, Hx Coronary Artery Disease, Hx Heart Attack Pulmonary Medical History: Denies: Hx Asthma, Hx Bronchitis, Hx COPD, Hx Pneumonia, Hx Tuberculosis Neurological Medical History: Denies: Hx Cerebrovascular Accident, Hx Seizures, Hx Parkinson's Disease Endocrine Medical History: Reports: Hx Diabetes Mellitus Type 2 Renal/ Medical History: Denies: Hx End Stage Renal Disease, Hx Kidney Stones, Hx Peritoneal Dialysis GI Medical History: Reports: Hx Gastroesophageal Reflux Disease. Denies: Hx Cirrhosis, Hx Ulcer Musculoskeletal Medical History: Reports Hx Arthritis, Denies Hx Multiple Sclerosis, Reports Hx Musculoskeletal Deformity, Reports Hx Musculoskeletal Trauma Skin Medical History: Reports Hx Cellulitis Psychiatric Medical History: Denies: Hx Bipolar Disorder, Hx Depression, Hx Schizophrenia Past Surgical History: Reports: Hx Cholecystectomy, Hx Hysterectomy, Hx Orthopedic Surgery - right shoulder X2. Denies: Hx Pacemaker - Immunizations Immunizations up to date: Yes Hx Diphtheria, Pertussis, Tetanus Vaccination: Yes Physical Exam - Vital signs Vitals: Temp Pulse Resp BP Pulse Ox 98.2 F 97 16 123/77 98 03/06/20 11:17 03/06/20 11:17 03/06/20 11:17 03/06/20 11:17 03/06/20 11:17 Course - Re-evaluation Re-evalutation: 03/06/20 12:20 Notified by lab that patient has a blood sugar of 576. Patient states she did not check her blood sugar this morning and did not take her insulin prior to arrival. Will administer IV fluids, subcutaneous insulin, labs do not show DKA, reevaluate after fluids and insulin. . Patient states she did not take her insulin this morning and she did not check her blood sugars. Will give IV fluids, subcutaneous insulin 15 units and reevaluate. 03/06/20 15:10 Patient is resting comfortably no acute distress at this time. Blood sugar 378, will give another liter of IV fluids, 10 units of subcutaneous regular insulin and reevaluate. 03/06/20 16:35 Patient is resting comfortably she remains pain-free. Reviewed all test results with patient. She was counseled on the need to take her insulin as prescribed. Follow-up with her primary care physician is scheduled this week. Patient was requesting a prescription for her Percocet. Patient was counseled since that is her chronic pain medication she will need to get that filled by her primary care physician. That we cannot discharge her with any narcotic pain medication. She is to return for any new or worsening symptoms. All questions were answered. Patient verbalized understanding and agrees with plan of care. 03/06/20 16:49 03/06/20 16:51 03/06/20 16:52 - Vital Signs Vital signs: Temp Pulse Resp BP Pulse Ox 97.8 F 66 18 128/73 H 100 03/06/20 16:30 03/06/20 16:30 03/06/20 16:30 03/06/20 16:30 03/06/20 16:30 03/06/20 16:49 - Laboratory Result Diagrams: 03/06/20 11:35 03/06/20 11:35 Laboratory results interpreted by me: 03/06/20 03/06/20 03/06/20 11:35 11:35 12:48 Lymph % (Auto) 47.9 H Sodium 130.5 L Chloride 95 L BUN 21 H Glucose 576 H* POC Glucose > 550 H* Alkaline Phosphatase 201 H 03/06/20 03/06/20 15:05 16:24 Lymph % (Auto) Sodium Chloride BUN Glucose POC Glucose 385 H 328 H Alkaline Phosphatase - Diagnostic Test Radiology reviewed: Reports reviewed Discharge - Discharge Clinical Impression: Pain in left lower leg, Hyperglycemia Condition: Stable Disposition: HOME, SELF-CARE Instructions: Hyperglycemia ([facility]), Leg Pain Nonspecific ([facility]) Additional Instructions: You need to take your insulin as prescribed, monitor your blood sugars. Follow- up with your primary care physician this week as scheduled. Return for any new or worsening symptoms. Referrals: GARY GARY MD [Primary Care Provider] - Follow up as needed
[2020-03-06 11:58] LABS: INTERNATIONAL RATION (INR) 0.97; PROTHROMBIN TIME 12.9 SEC (11.4-15.4)
[2020-03-06 11:59] LABS: PARTIAL THROMBOPLASTIN TIME 25.5 SEC (23.5-35.8)
[2020-03-06 12:09] LABS: ALKALINE PHOSPHATASE 201 U/L (38-126); ANION GAP 11 (5-19); ASPARTATE AMINO TRANSFERASE 24 U/L (14-36); BILIRUBIN,TOTAL 0.5 mg/dL (0.2-1.3); BLOOD UREA NITROGEN 21 mg/dL (7-20); CALCIUM 9.3 mg/dL (8.4-10.2); CARBON DIOXIDE 25 mmol/L (22-30); CHLORIDE 95 mmol/L (98-107); POTASSIUM 4.7 mmol/L (3.6-5.0); TOTAL PROTEIN 7.2 g/dL (6.3-8.2)
[2020-03-06 12:19] LABS: GLUCOSE 576 mg/dL (75-110)
[2020-03-06] MEDS ORDERED: RINGERS SOLUTION,LACTATED 1,000 ML IV ONE ×2 (12:22→15:08)
[2020-03-06] MEDS ORDERED: INSULIN REG, HUMAN 100 UNIT/ML 3 ML VIAL (PYX) SUBCUT ONE ×2 (12:23→15:11)
[2020-03-06] MEDS ORDERED: OXYCODONE-ACETAMINOPHEN 5-325 MG TABLET PO ONE (12:23)
--- NOTE | 2020-03-06 15:25 | RADIOLOGY REPORT (SQ) ---
EXAM DESCRIPTION: VENOUS UNILATERAL LOWER IMAGES COMPLETED DATE/TIME: 03/06/2020 1:51 pm REASON FOR STUDY: Left posterior leg pain, hx of DVT COMPARISON: 11/19/2018 TECHNIQUE: Dynamic and static yanez scale and color images acquired of the left leg venous system. Se lected spectral images acquired with additional compression and augmentation maneuvers. The contralat eral common femoral vein and saphenofemoral junction were also imaged. Images stored on PACS. LIMITATIONS: None. FINDINGS: COMMON FEMORAL: Normal phasicity, compression and augmentation. No visualized echogenic ma terial on yanez scale. No defects on color images. FEMORAL: Normal compression and augmentation. No visualized echogenic material on yanez scale. No defe cts on color images. POPLITEAL: Normal compression, augmentation. No visualized echogenic material on yanez scale. No defec ts on color images. CALF VESSELS: Normal compression, augmentation. No visualized echogenic material on yanez scale. No de fects on color images. GSV and SSV: Normal compression, augmentation. No visualized echogenic material on yanez scale. No def ects on color images. ANY DEEP VENOUS INSUFFICIENCY: Not evaluated. ANY EVIDENCE OF POPLITEAL CYST: No. OTHER: No other significant finding. CONTRALATERAL COMMON FEMORAL VEIN AND SAPHENOFEMORAL JUNCTION: Normal phasicity, compression and augmentation. No visualized echogenic material on yanez scale. No de fects on color images. IMPRESSION: No DVT or SVT in the left lower extremity. TECHNICAL DOCUMENTATION: JOB ID: [id number] [employer]- All Rights Reserved Reading location - IP/workstation name: [email or web address]
[2020-03-06 16:32] VITALS: BP 128/73
== END 2020-03-06 16:43 | disposition home or self-care (01) ==
LOC: ER 11:12
DX: M79.662 Pain in left lower leg (principal); E11.65 Type 2 diabetes mellitus with hyperglycemia; I10 Essential (primary) hypertension; Z88.1 Allergy status to other antibiotic agents
CPT/HCPCS: 99284; 96360; 96361; 36415; 82962; 85025; 85610; 85730; 80053; 93971; J1815; J7120

== ENCOUNTER → 2020-05-02 | Outpatient (CLI) | payer SELFPAY ==
[2020-05-02 10:39] VITALS: BP 137/73
--- NOTE | 2020-05-02 10:39 | ER [facility] ASSESSMENT REPORT ---
Intake - In the Last 14 days Have you traveled outside [place]?: No Have you been in close contact with someone CONFIRMED: No Worked in Healthcare?: No - Symptoms Subjective Fever([place] feverish): Yes Chills: Yes Muscule Aches: Yes Runny Nose: No Sore Throat: No Cough (New or worsening chronic cough): No Shortness of breath: No Nausea or Vomiting: Yes Headache: No Abdominal Pain: No Diarrhea(3 or more loose stools in last 24 hours): No - Do you have any of the following Chronic lung disease: Asthma or emphysema or COPD: No Cystic Fibrosis: No Diabetes: Yes High Blood Pressure: Yes Cardiovascular Disease: No Chronic Kidney Disease: No Chronic Liver Disease: No Chronic blood disorder like Sickle Cell Disease: No Weak immune system due to disease or medication: No Neurologic condition that limits movement: No Developmental delay - Moderate to Severe: No Recent (within past 2 weeks) or current : No Morbid Obesity (>100 pounds over ideal weight): No - Objective Temperature: 97.2 F Pulse Rate: 104 Respiratory Rate: 20 Blood Pressure: 137/73 O2 Sat by Pulse Oximetry: 96 Objective: Given above, testing performed: If Testing Performed: Test Specimen Type Sent to General - General Mode of Arrival: Ambulatory Information source: Patient Notes: Patient presents to the [facility] for screening for the coronavirus. Patient reports fever, chills, body aches and nausea for the past 4 days. Patient has underlying history of hypertension as well as diabetes. - HPI Associated symptoms: Chills, Fever, Nausea - Related Data Allergies/Adverse Reactions: metronidazole [From Flagyl] Allergy (Severe, Verified 03/06/20 11:24) Hives Past Medical History - General Information source: Patient - Social History Smoking Status: Former Smoker Lives with: Family Family History: DM - Past Medical History Cardiac Medical History: Reports: Hx Hypercholesterolemia, Hx Hypertension Denies: Hx Congestive Heart Failure, Hx Coronary Artery Disease, Hx Heart Attack Pulmonary Medical History: Denies: Hx Asthma, Hx Bronchitis, Hx COPD, Hx Pneumonia, Hx Tuberculosis Neurological Medical History: Denies: Hx Cerebrovascular Accident, Hx Seizures, Hx Parkinson's Disease Endocrine Medical History: Reports: Hx Diabetes Mellitus Type 2 Renal/ Medical History: Denies: Hx End Stage Renal Disease, Hx Kidney Stones, Hx Peritoneal Dialysis GI Medical History: Reports: Hx Gastroesophageal Reflux Disease. Denies: Hx Cirrhosis, Hx Ulcer Musculoskeletal Medical History: Reports Hx Arthritis, Denies Hx Multiple Sclerosis, Reports Hx Musculoskeletal Deformity, Reports Hx Musculoskeletal Trauma Skin Medical History: Reports Hx Cellulitis Psychiatric Medical History: Denies: Hx Bipolar Disorder, Hx Depression, Hx Schizophrenia Past Surgical History: Reports: Hx Cholecystectomy, Hx Hysterectomy, Hx Ort hopedic Surgery - right shoulder X2. Denies: Hx Pacemaker Physical Exam - Notes Notes: The patient was evaluated during the global Covid 19 pandemic, and that diagnosis was suspected/considered upon their initial presentation. Their evaluation, treatment and testing was consistent with current guidelines for patients who present with complaints or symptoms that may be related to Covid 19. Full physical exam could not be performed due to covid 19 isolation protocols. Constitutional: Nontoxic appearance, no acute distress Eyes: Nonicteric, extraocular movements intact, sclera clear Cardiovascular: Heart rate and rhythm regular, no JVD Respiratory: Breath sounds clear bilaterally, nonlabored breathing, no use of accessory muscles, no tachypnea Gastrointestinal: Abdomen not distended Muculoskeletal: Moves all extremities well, normal gait Skin: Normal color Neuro: Awake alert oriented, normal speech Psych: Normal mood and affect Diagnostic Results Laboratory Results: Patient presents with upper respiratory symptoms worrisome for possible Covid 19. Patient does not have emergency worrying symptoms such as difficulty breathing, shortness of breath, chest pain, pressure, confusion or cyanosis. Patient appears suitable for discharge as vital signs are stable and patient is nontoxic in appearance. Good return precautions have been discussed with patient, patient verbalized understanding and is agreeable with discharge plan of care at this time. Patient Education/Counseling Counseling/Education: Patient was provided with discharge information including: As a person under investigation for Covid 19, the [place] department of Health and Human Services, division of public health advises you to adhere to the following guidance until your test results are reported to you. If your test result is positive, you will receive additional information from your provider and your local health department at that time. Remain at home until you are cleared by the health provider or public health authorities. Keep a log of visitors to your home, notify any visitors to your home of your isolation status. If you plan to move to a new address or leave the county, notify the local health department in your County. Call your doctor or seek care if you have an urgent medical need. Before seeking medical care, call ahead to get instructions from the provider before arriving at the medical office clinic or hospital. Notify them that you are being tested for the virus that causes Covid 19 so that arrangements can be made, as necessary, to prevent transmission to others in the healthcare setting. Next, notify the local health department in your county. If a medical emergency arises and you need to call 911, inform the first responders that you are being tested for the virus that causes Covid 19. Next, notify the local health department in your county. [facility] Discharge - Discharge Clinical Impression: Encounter for screening laboratory testing for COVID-19 virus Condition: Stable Disposition: Home; Selfcare
== END ==
LOC: RDC 10:03
PROVIDERS: ATTEND Nurse Practitioner Family
DX: Z20.828 Contact with and (suspected) exposure to other viral communicable diseases (principal); R50.9 Fever, unspecified; M79.10 Myalgia, unspecified site; R11.0 Nausea; I10 Essential (primary) hypertension; E78.00 Pure hypercholesterolemia, unspecified; E11.9 Type 2 diabetes mellitus without complications; K21.9 Gastro-esophageal reflux disease without esophagitis; Z88.1 Allergy status to other antibiotic agents; Z87.891 Personal history of nicotine dependence
CPT/HCPCS: 87635; C9803; 99201; 99211